=== PATIENT | male | born 1975 | race Caucasian/White ===

== ENCOUNTER 2019-09-27 23:02 | Inpatient (IN) | payer BC, SELFPAY ==
[2019-09-27] MEDS ORDERED: Lorazepam 2 MG/ML VIAL ONE (23:22)
[2019-09-27] MEDS ORDERED: Diazepam 5 MG TAB ONE (23:22)
[2019-09-27 23:23] LABS: #Eosinphils 0.1 thou/uL (0.0-0.7); #Lymphocytes 1.9 thou/uL (1.20-3.40); #Monocytes 0.6 thou/uL (0.11-0.59); #Neutrophils 3.5 thou/uL (1.40-6.50); %Basophils 0.6 % (0.0-1.0); %Lymphocytes 30.9 % (21.0-51.0); %Monocytes 9.6 % (0.0-10.0); %Neutrophils 57.9 % (42.0-75.0); Hemoglobin 14.8 g/dL (14.0-18.0); Mean Corpuscular HGB CONC 32.7 g/dL (32.0-36.0); Mean Corpuscular Hemoglobin 31.9 pg (27.0-31.0); Mean Corpuscular Volume 97.7 fL (78.0-98.0); Platelet Count 167 thou/uL (130-400); RBC Distribution Width 17.8 % (11.5-14.5); Red Blood Cell (RBC) Count 4.65 mill/uL (4.70-6.10); White Blood Cell (WBC) Count 6.1 thou/uL (4.8-10.8)
[2019-09-27 23:40] LABS: INR-International Normal Ratio 1.1; Prothrombin Time 14.4 SEC (12.0-14.7)
[2019-09-27 23:43] LABS: Acetaminophen Less than 6.0 mcg/mL (10.0-30.0); Alcohol Less than 10 mg/dL (Less than 10); Salicylate Less than 8.0 mg/dL (15.0-30.0)
[2019-09-27 23:44] LABS: ALT (SGPT) 160 U/L (8-55); AST (SGOT) 118 U/L (5-34); Albumin 3.8 g/dL (3.5-5.0); Alkaline Phosphatase 124 U/L (40-110); Anion Gap 23 mmol/L (10-20); BUN (Urea Nitrogen) 4 mg/dL (8.9-20.6); Bilirubin, Total 2.4 mg/dL (0.2-1.2); Calc. Creatinine Clearance 0 mL/min (70-130); Calcium 7.8 mg/dL (7.8-10.44); Carbon Dioxide 19 mmol/L (22-29); Chloride 100 mmol/L (98-107); Estimated GFR-MDRD 90; Globulin 2.7 g/dL (2.4-3.5); Glucose 111 mg/dL (70-105); Potassium 3.5 mmol/L (3.5-5.1); Protein, Total 6.5 g/dL (6.0-8.3); Sodium 138 mmol/L (136-145)
[2019-09-28] MEDS ORDERED: Ondansetron ODT 4 MG TAB SL PRN (02:00)
[2019-09-28] MEDS ORDERED: Ondansetron PF 4 MG/2 ML Vial IVP PRN ×3 (02:00→10:35)
[2019-09-28] MEDS ORDERED: Diazepam 5 MG TAB PO PRN (02:02)
[2019-09-28 02:33] VITALS: BMI 27.5
[2019-09-28] MEDS ORDERED: Multivitamins, Adult 10 ML, Thiamine HCl 100 MG, Folic Acid 1 MG in Dextrose 5 %-0.45 %... IV SCH (03:00)
[2019-09-28] MEDS: Lorazepam 2 MG/ML VIAL SLOW IVP PRN ×5 (04:24→21:06)
[2019-09-28 04:29] LABS: Lactic Acid 2.2 mmol/L (0.5-2.2)
--- NOTE | 2019-09-28 04:38 | PDOC.HHP ---
Hospitalist ROS - Medication Medications: Active Medications Generic Name Dose Route Start Last Admin Trade Name Freq PRN Reason Stop Dose Admin Diazepam 10 mg 09/28/19 02:02 09/28/19 03:05 Valium PO 09/28/19 13:05 10 mg Q4H PRN Administration FOR ASE 10 OR GREATER Multivitamins 10 ml/ Thiamine 1,011.2 mls @ 100 mls/hr 09/28/19 03:00 02:56 HCl 100 mg/ Folic Acid 1 mg/ IV 09/28/19 13:07 1,011.2 mls Dextrose/Sodium Chloride 0300 EMELI Administration Lorazepam 2 mg 09/28/19 02:39 09/28/19 04:24 Ativan SLOW IVP 2 mg Q2H PRN Administration Agitation/Withdrawal Hospitalist Results - Labs Result Diagrams: 09/27/19 23:10 09/27/19 23:10 Lab results: WBC 6.1 thou/uL (4.8-10.8) 09/27/19 23:10 Hgb 14.8 g/dL (14.0-18.0) 09/27/19 23:10 Hct 45.4 % (42.0-52.0) 09/27/19 23:10 MCV 97.7 fL (78.0-98.0) 09/27/19 23:10 Plt Count 167 thou/uL (130-400) 09/27/19 23:10 Neutrophils % 57.9 % (42.0-75.0) 09/27/19 23:10 Sodium 138 mmol/L (136-145) 09/27/19 23:10 Potassium 3.5 mmol/L (3.5-5.1) 09/27/19 23:10 Chloride 100 mmol/L (98-107) 09/27/19 23:10 Carbon Dioxide 19 mmol/L (22-29) L 09/27/19 23:10 BUN 4 mg/dL (8.9-20.6) L 09/27/19 23:10 Creatinine 0.92 mg/dL (0.7-1.3) 09/27/19 23:10 Glucose 111 mg/dL (70-105) H 09/27/19 23:10 Lactic Acid 2.2 mmol/L (0.5-2.2) 09/28/19 03:39 Calcium 7.8 mg/dL (7.8-10.44) 09/27/19 23:10 Total Bilirubin 2.4 mg/dL (0.2-1.2) H 09/27/19 23:10 AST 118 U/L (5-34) H 09/27/19 23:10 ALT 160 U/L (8-55) H 09/27/19 23:10 Alkaline Phosphatase 124 U/L (40-110) H 09/27/19 23:10 Creatine Kinase 79 U/L (30-200) 09/27/19 23:11 Serum Total Protein 6.5 g/dL (6.0-8.3) 09/27/19 23:10 Albumin 3.8 g/dL (3.5-5.0) 09/27/19 23:10
[2019-09-28] MEDS ORDERED: Magnesium Oxide 400 MG TAB PO SCH (09:00)
[2019-09-28] MEDS ORDERED: Ibuprofen 200 MG TAB PO PRN (10:35)
[2019-09-28] MEDS ORDERED: Acetaminophen 500 MG TAB PO PRN (10:35)
[2019-09-28] MEDS ORDERED: Labetalol HCl 100 MG/20 ML VIAL SLOW IVP PRN (10:35)
[2019-09-28] MEDS ORDERED: hydrALAZINE 20 MG/ML VIAL SLOW IVP PRN (10:35)
[2019-09-28] MEDS ORDERED: Ondansetron ODT 4 MG TAB PO PRN ×2 (10:35)
[2019-09-28] MEDS: Sodium Chloride 0.9% 1,000 ML IV SCH ×2 (12:06→21:12)
[2019-09-28] MEDS: Multivitamins, Adult 10 ML, Folic Acid 1 MG, Thiamine HCl 100 MG in Dextrose 5 %-0.45 %... IV SCH (12:33)
--- NOTE | 2019-09-28 13:09 | HP ---
PRIMARY CARE PROVIDER: Dr. Armaan Bourne at [facility]. CHIEF COMPLAINT: Alcohol withdrawal. HISTORY OF PRESENT ILLNESS: This is a 44-year-old male, who presented to [facility] Emergency Department complaining of alcohol withdrawal symptoms including tremors, sweating, appetite changes, and lower extremity weakness. The patient admits to longstanding alcohol abuse with inpatient treatment on 2 occasions, most notably 3 years ago and 1 year prior to this evaluation at [facility]. The patient states he was successful initially after leaving the program, then went back to heavy alcohol use. The patient states he last drank a half a bottle of bourbon on 09/24/2019 and was attempting to wean himself off the alcohol. The patient noted increased lower extremity weakness and difficulty ambulating in his house from his bed to the restroom in the cardiac cath lab manager hours prior to admission. The patient states his legs gave out and he had to crawl back to his bed. The patient denied any seizure activity, head injury, or loss of consciousness. The patient denied any fever, chills, nausea, vomiting, diarrhea, or blood in the stool. The patient denies taking any benzodiazepines at home, but did take antidepressant for depression. In the emergency room, the patient underwent evaluation with evidence of alcohol withdrawal with hypertension, tachycardia, and tachypnea. The patient received intravenous fluids in addition to lorazepam 2 mg IV push in addition to diazepam 10 mg orally. The patient was referred to the Hospitalist Service for further evaluation. PAST MEDICAL HISTORY: 1. Alcohol abuse. 2. Alcohol withdrawal. 3. Depression. 4. Gastric ulcer, status post cauterization. 5. Anxiety. PAST SURGICAL HISTORY: 1. Status post gastric bypass. 2. Status post cauterization of gastric ulcer. CURRENT MEDICATIONS: Duloxetine 60 mg p.o. b.i.d. ALLERGIES: NO KNOWN DRUG ALLERGIES. FAMILY HISTORY: No inheritable diseases per the patient report. SOCIAL HISTORY: The patient resides in [place], [place] over the last 25 years. Daily alcohol use up to 10 drinks per day. Last intake in the last 48 hours. Remote tobacco use, none currently. No illicit drug use. Currently unemployed after recently losing his job. REVIEW OF SYSTEMS: CONSTITUTIONAL: Negative for weight loss or gain, ability to conduct usual activities. SKIN: Negative for rash, itching. EYES: Negative for double vision, pain. ENT/MOUTH: Negative for nose bleeding, neck stiffness, pain, tenderness. CARDIOVASCULAR: Negative for palpitations, dyspnea on exertion, orthopnea. RESPIRATORY: Negative for shortness of breath, wheezing, cough, hemoptysis, fever or night sweats. GASTROINTESTINAL: Negative for poor appetite, abdominal pain, heartburn, nausea, vomiting, constipation, or diarrhea. GENITOURINARY: Negative for urgency, frequency, dysuria, nocturia. MUSCULOSKELETAL: Negative for pain, swelling. NEUROLOGIC/PSYCHIATRIC: Negative for anxiety, depression. ALLERGY/IMMUNOLOGIC: Negative for skin rash, bleeding tendency. Otherwise, negative except as stated per HPI. PHYSICAL EXAMINATION: VITAL SIGNS: On admission, blood pressure 147/101, pulse 118, respiratory rate 24, temperature 99.1 degrees Fahrenheit, and O2 saturation 99% on room air. GENERAL APPEARANCE: This is a 44-year-old male, alert and oriented x1, pleasant, responsive, in moderate distress. HEENT: Pupils are equal, round, and reactive to light and accommodation. Extraocular muscles are intact. No scleral icterus. No conjunctival injection. Nares patent. OP is clear. Oral mucosa dry. NECK: Supple. No cervical adenopathy. No thyromegaly. No carotid bruits. No JVD appreciated. Cervical spine with full active and passive range of motion. No meningeal signs noted. CHEST: Lungs are clear to auscultation bilaterally. CARDIOVASCULAR: S1 and S2 without noted murmur, rub, or gallop. Tachycardia noted. ABDOMEN: Rounded, soft, nontender, and nondistended. Bowel sounds are positive in all 4 quadrants. There is no palpable mass. No rebound or guarding appreciated. EXTREMITIES: Warm and dry with fair turgor. Diaphoretic. Pulses palpable distally at the dorsalis pedis, posterior tibial, and popliteal arteries bilaterally. Capillary refill less than 2 seconds. NEUROLOGIC: Cranial nerves II through XII are grossly intact. Positive tremors noted at rest. PERTINENT LABORATORY AND X-RAY FINDINGS: Sodium 138, potassium 3.5, chloride 100, CO2 of 19, BUN 4, creatinine 0.92, glucose 111. Lactic acid level ranged between 2.2 to 6.8. Calcium 7.8, total bilirubin 2.4, AST 118, ALT 160, alkaline phosphatase 124, total CK of 79, and albumin 3.8. TSH 3.81. CBC showed a white blood cell count of 6.1, hemoglobin 15, hematocrit 45, platelet count 167 with normal differential. PT 14.4, INR 1.1, and PTT 32. Salicylate, acetaminophen, and plasma alcohol level negative. EKG dated 09/27/2019 by my interpretation shows sinus tachycardia with heart rates in the 120s. Poor tracing with extensive baseline artifact and respiratory variation. ASSESSMENT AND PLAN: 1. Alcohol withdrawal. The patient will be admitted to the intermediate care unit. We will continue supportive and symptomatic management with Ativan 2 mg IV every hour for withdrawal symptoms. Banana bag at 125 mL/h daily. Consult Case Management for evaluation and identification of alcohol rehabilitation facilities. 2. Alcohol abuse. See #1 above. 3. Transaminitis. Secondary to alcohol-induced hepatitis. Serial LFT monitoring. 4. Lactic acidosis. Secondarily to #1. We will continue IV fluid hydration and monitor clinical response. 5. Prophylaxis. SCDs while in bed. Pepcid 20 mg p.o. b.i.d. 6. Code status is full. Surrogate medical decision maker is the patient's spouse. Job ID: [id number]
[2019-09-28] MEDS: Famotidine 20 MG TAB PO SCH (21:07)
[2019-09-29 04:36] LABS: ALT (SGPT) 107 U/L (8-55); AST (SGOT) 114 U/L (5-34); Alkaline Phosphatase 94 U/L (40-110); Anion Gap 11 mmol/L (10-20); BUN (Urea Nitrogen) Less than 4 mg/dL (8.9-20.6); Bilirubin, Total 1.3 mg/dL (0.2-1.2); Calc. Creatinine Clearance 191 mL/min (70-130); Calcium 7.4 mg/dL (7.8-10.44); Carbon Dioxide 23 mmol/L (22-29); Chloride 108 mmol/L (98-107); Estimated GFR-MDRD Greater than 90; Globulin 2.2 g/dL (2.4-3.5); Glucose 106 mg/dL (70-105); Potassium 3.2 mmol/L (3.5-5.1); Protein, Total 5.2 g/dL (6.0-8.3); Sodium 139 mmol/L (136-145)
[2019-09-29 04:41] LABS: Eosinophils 1 % (0-10); Hemoglobin 13.2 g/dL (14.0-18.0); Lymphocytes 25 % (21-51); MDiff Complete? YES; Mean Corpuscular Hemoglobin 31.7 pg (27.0-31.0); Mean Corpuscular Volume 99.1 fL (78.0-98.0); Mean Platelet Volume 9.1 fL (7.4-10.4); Monocytes 5 % (0-10); Neutrophil 65 % (42-75); Platelet Count 120 thou/uL (130-400); RBC Distribution Width 17.6 % (11.5-14.5); Reactive Lymphocytes 4 % (0-10); Red Blood Cell (RBC) Count 4.15 mill/uL (4.70-6.10); White Blood Cell (WBC) Count 3.2 thou/uL (4.8-10.8)
--- NOTE | 2019-09-29 08:51 | PDOC.HOSPP ---
- Subjective Encounter Date: 09/29/19 Encounter Time: 08:40 Subjective: f/u for ETOH withdrawal/abuse on Ativan, IVF Banana bag. Did well overnight but has some tremors this am. - Objective Vital Signs & Weight: Vital Signs (12 hours) Temp Pulse Ox 09/29/19 07:57 99 09/29/19 07:33 97.8 F 09/29/19 03:51 97.6 F 09/28/19 23:39 97.6 F Weight Weight 202 lb 12.8 oz Most Recent Monitor Data Heart Rate from ECG 94 NIBP 130/90 NIBP BP-Mean 103 Respiration from ECG 16 SpO2 100 I&O: 09/28/19 09/29/19 09/30/19 06:59 06:59 06:59 Intake Total 710 4665 Output Total 450 3550 800 Balance 260 1115 -800 Result Diagrams: 09/29/19 03:39 09/29/19 03:39 Additional Labs: Laboratory Tests 09/27/19 09/27/19 09/27/19 23:10 23:10 23:11 WBC 6.1 Hgb 14.8 Potassium 3.5 Total Bilirubin 2.4 H AST 118 H ALT 160 H TSH 3rd Generation 3.8138 09/29/19 03:39 WBC Hgb Potassium Total Bilirubin 1.3 H AST 114 H ALT 107 H TSH 3rd Generation EKG Reviewed by me: Yes (Tele - sinus tachycardia in low 100's) Hospitalist ROS - Medication Medications: Active Medications Generic Name Dose Route Start Last Admin Trade Name Freq PRN Reason Stop Dose Admin Famotidine 20 mg 09/28/19 21:00 09/28/19 21:07 Pepcid PO 20 mg BID EMELI Administration Multivitamins 10 ml/ Folic 1,011.2 mls @ 125 mls/hr 09/28/19 10:35 09/28/19 12:33 Acid 1 mg/ Thiamine HCl 100 mg IV 1,011.2 mls / Dextrose/Sodium Chloride Q24HR EMELI Administration Sodium Chloride 1,000 mls @ 100 mls/hr 09/28/19 10:35 09/28/19 21:12 Normal Saline 0.9% IV 1,000 mls .Q10H EMELI Administration Lorazepam 2 mg 09/28/19 10:35 09/28/19 21:06 Ativan SLOW IVP 2 mg Q1H PRN Administration Alcohol Withdrawal - Exam General Appearance: NAD, awake alert Eye: PERRL, anicteric sclera ENT: normocephalic atraumatic, no oropharyngeal lesions Neck: supple, symmetric, no JVD, no thyromegaly Heart: no murmur, no gallops, no rubs Heart - other findings: tachycardic Respiratory: CTAB, no wheezes, no rales, no ronchi, normal chest expansion Gastrointestinal: soft, non-tender, non-distended, normal bowel sounds, no palpable masses Extremities: no cyanosis, no clubbing, no edema Skin: normal turgor, no lesions Neurological: cranial nerve grossly intact, no new deficit Neurological - other findings: + tremors Musculoskeletal: generalized weakness Psychiatric: normal affect, A&O x 3 Hosp A/P (1) Alcohol withdrawal Code(s): F10.239 - ALCOHOL DEPENDENCE WITH WITHDRAWAL, UNSPECIFIED Status: Acute Plan: Continue Ativan 2mg IV q2h prn, supportive mgmt, ETOH rehab options (2) Alcohol abuse Code(s): F10.10 - ALCOHOL ABUSE, UNCOMPLICATED Status: Acute Plan: See above, continue IVF Banana bag (3) Lactic acidosis Code(s): E87.2 - ACIDOSIS Status: Acute Plan: Resolved (4) Hypokalemia Code(s): E87.6 - HYPOKALEMIA Status: Acute Plan: KCL supplementation, serial K+ monitoring (5) Alcoholic hepatitis Code(s): K70.10 - ALCOHOLIC HEPATITIS WITHOUT ASCITES Status: Chronic Plan: Continue serial monitoring - Plan plan discussed w/ family, social media content specialist, DVT proph w/SCDs Continue Ativan 2mg IV q2h prn withdrawal sx Continue Banana bag daily Restart home Cymbalta CM for ETOH rehab program options Continue Tele monitoring AM lab: CMP
[2019-09-29] MEDS: Lorazepam 2 MG/ML VIAL SLOW IVP PRN ×6 (09:04→22:45)
[2019-09-29] MEDS: Sodium Chloride 0.9% 1,000 ML IV SCH ×2 (09:04→18:11)
[2019-09-29] MEDS: Famotidine 20 MG TAB PO SCH ×2 (09:04→20:17)
[2019-09-29] MEDS ORDERED: Potassium Chloride 20 MEQ TAB PO SCH (09:15)
[2019-09-29] MEDS ORDERED: DULoxetine 60 MG CAP PO SCH ×2 (09:15→09:30)
[2019-09-29] MEDS: Multivitamins, Adult 10 ML, Folic Acid 1 MG, Thiamine HCl 100 MG in Dextrose 5 %-0.45 %... IV SCH (12:03)
[2019-09-29] MEDS: Potassium Chloride 20 MEQ TAB PO SCH (18:05)
[2019-09-29] MEDS: DULoxetine 60 MG CAP PO SCH (20:17)
[2019-09-30] MEDS: Lorazepam 2 MG/ML VIAL SLOW IVP PRN ×5 (01:04→22:08)
[2019-09-30] MEDS: Sodium Chloride 0.9% 1,000 ML IV SCH ×3 (03:35→22:11)
[2019-09-30 04:36] LABS: ALT (SGPT) 137 U/L (8-55); AST (SGOT) 197 U/L (5-34); Alkaline Phosphatase 86 U/L (40-110); Anion Gap 9 mmol/L (10-20); BUN (Urea Nitrogen) 5 mg/dL (8.9-20.6); Calc. Creatinine Clearance 194 mL/min (70-130); Calcium 7.9 mg/dL (7.8-10.44); Carbon Dioxide 25 mmol/L (22-29); Chloride 108 mmol/L (98-107); Estimated GFR-MDRD Greater than 90; Globulin 2.3 g/dL (2.4-3.5); Glucose 99 mg/dL (70-105); Potassium 4.1 mmol/L (3.5-5.1); Protein, Total 5.3 g/dL (6.0-8.3); Sodium 138 mmol/L (136-145)
[2019-09-30] MEDS: Potassium Chloride 20 MEQ TAB PO SCH (09:41)
[2019-09-30] MEDS: Famotidine 20 MG TAB PO SCH ×2 (09:42→19:49)
[2019-09-30] MEDS: DULoxetine 60 MG CAP PO SCH ×2 (09:42→19:48)
[2019-09-30] MEDS: Multivitamins, Adult 10 ML, Folic Acid 1 MG, Thiamine HCl 100 MG in Dextrose 5 %-0.45 %... IV SCH (10:48)
--- NOTE | 2019-09-30 15:00 | CON ---
DATE OF CONSULTATION: 09/30/2019 SERVICE: Pulmonary Medicine. INTERVAL HISTORY: The patient is doing really well from respiratory standpoint. He was in the IMCU because of severe withdrawal features. He did get a little confused, but at no point, did he become severely agitated or combative. He cannot provide any additional elements of the history at this point. All he knows is that he would like to be done with drinking any alcohol. He has never had withdrawal features this severe. He typically drinks a half of fifth every couple of days. That being said, he is a heavy daily drinker. PAST MEDICAL HISTORY: 1. Alcohol abuse. 2. Major depressive disorder. 3. Peptic ulcer disease. 4. Anxiety disorder. PAST SURGICAL HISTORY: 1. Gastric bypass surgery. 2. EGD for peptic ulcer disease. ALLERGIES: NO KNOWN DRUG ALLERGIES. MEDICATIONS: List of his inpatient medications was reviewed. No specific updates were made at this time. SOCIAL HISTORY: The patient has a positive alcohol abuse history. Otherwise, noncontributory. He uses up to a half of fifth of liquor on a daily basis. He has been without alcohol for 3 days now. He does not use any current tobacco or illicit drugs. REVIEW OF SYSTEMS: General; head, ears, eyes, nose, and throat; cardiovascular; respiratory; GI; ; musculoskeletal; neurologic; and skin are negative except as mentioned in the HPI. PHYSICAL EXAMINATION: VITAL SIGNS: Afebrile, pulse 67, respirations 15, saturations 99%, currently on room air. GENERAL: The patient is awake and alert, in no apparent distress. LUNGS: One full air entry with no prolonged expiratory phase or wheezing. HEART: Normal rate, regular. ABDOMEN: Soft, nontender, and nondistended. Bowel sounds are positive. MUSCULOSKELETAL: No cyanosis or clubbing. There is no pitting in the bilateral lower extremities. NEUROLOGIC: Grossly nonfocal. He does demonstrate a very fine tremor with much of his activity. LABORATORY DATA: WBC 3.2, hemoglobin 13.2, platelets 120,000. INR 1.1. Basic metabolic profile is unremarkable. AST and ALT are gently up-trending, alkaline phosphatase 83. Lactate was originally 6.8, but is downtrending at 2.2. CK 79, TSH falls within normal limits. Alcohol serum and salicylates are all unremarkable. ASSESSMENT: 1. Delirium tremens, resolved. 2. Alcohol withdrawal syndrome, mild. 3. Alcoholic hepatitis, mild. DISCUSSION AND PLAN: At this point, the patient is stable for transition out of the ICU to the medical unit. He will continue his Ativan taper through time. He is no longer confused or disoriented. He is awake and alert, and cooperative. As such, I am hopeful that were through the worst of it. Once he is done with his Ativan taper, gabapentin may help to blunt the withdrawal features over the next couple of months. I will see whether or not this is effective for him. He will be transitioned to the floor, and when he arrives there, he will have no further requirements for Pulmonary Critical Care opinion, and I will sign off. Please call with additional questions or concerns through time. Job ID: [id number]
[2019-09-30] MEDS: Gabapentin 100 MG CAP PO SCH ×2 (15:11→19:49)
--- NOTE | 2019-09-30 16:06 | PDOC.HOSPP ---
- Subjective Encounter Date: 09/30/19 Encounter Time: 16:00 Subjective: f/u for ETOH withdrawal on Ativan, IVF's and Banana bags. Still with some tremors, not ambulating much due to cardiac monitoring. - Objective Vital Signs & Weight: Vital Signs (12 hours) Temp Pulse Ox 09/30/19 15:23 96.5 F L 09/30/19 11:36 97.0 F L 09/30/19 08:15 97.0 F L 09/30/19 08:00 99 Weight Weight 202 lb 12.8 oz Most Recent Monitor Data Heart Rate from ECG 78 NIBP 119/96 NIBP BP-Mean 103 Respiration from ECG 16 SpO2 100 I&O: 09/29/19 09/30/19 10/01/19 06:59 06:59 06:59 Intake Total 4665 6500 Output Total 3550 4250 Balance 1115 2250 Result Diagrams: 09/29/19 03:39 09/30/19 03:24 Additional Labs: Laboratory Tests 09/27/19 09/27/19 09/27/19 23:10 23:10 23:11 WBC 6.1 Hgb 14.8 Potassium 3.5 Total Bilirubin 2.4 H AST 118 H ALT 160 H TSH 3rd Generation 3.8138 09/29/19 03:39 WBC Hgb Potassium Total Bilirubin 1.3 H AST 114 H ALT 107 H TSH 3rd Generation EKG Reviewed by me: Yes (Tele - Sinus tachycardia in low-100's) Hospitalist ROS - Medication Medications: Active Medications Generic Name Dose Route Start Last Admin Trade Name Freq PRN Reason Stop Dose Admin Duloxetine HCl 60 mg 09/29/19 21:00 09/30/19 09:42 Cymbalta PO 60 mg BID EMELI Administration Famotidine 20 mg 09/28/19 21:00 09/30/19 09:42 Pepcid PO 20 mg BID EMELI Administration Gabapentin 100 mg 09/30/19 15:00 09/30/19 15:11 Neurontin PO 100 mg TID EMELI Administration Sodium Chloride 1,000 mls @ 100 mls/hr 09/28/19 10:35 09/30/19 13:51 Normal Saline 0.9% IV 1,000 mls .Q10H EMELI Administration Lorazepam 2 mg 09/28/19 10:35 09/30/19 15:12 Ativan SLOW IVP 2 mg Q1H PRN Administration Alcohol Withdrawal Sodium Chloride 10 ml 09/29/19 21:00 09/30/19 09:43 Flush - Normal Saline IVF 10 ml Q12HR EMELI Administration - Exam General Appearance: NAD, awake alert Eye: PERRL, anicteric sclera ENT: normocephalic atraumatic, no oropharyngeal lesions Neck: supple, symmetric, no JVD, no thyromegaly Heart: RRR, no murmur, no gallops, no rubs, normal peripheral pulses Respiratory: CTAB, no wheezes, no rales, no ronchi Gastrointestinal: soft, non-tender, non-distended, normal bowel sounds Extremities: no cyanosis, no clubbing, no edema Skin: normal turgor, no lesions Neurological: cranial nerve grossly intact, no new deficit Neurological - other findings: + tremors Musculoskeletal: normal tone, normal strength, no muscle wasting Psychiatric: normal affect, A&O x 3 Hosp A/P (1) Alcohol withdrawal Code(s): F10.239 - ALCOHOL DEPENDENCE WITH WITHDRAWAL, UNSPECIFIED Status: Acute Plan: Continue Ativan IV, MVI, Thiamine and Folate, Rehab options pending (2) Alcohol abuse Code(s): F10.10 - ALCOHOL ABUSE, UNCOMPLICATED Status: Acute Plan: See above #1 (3) Lactic acidosis Code(s): E87.2 - ACIDOSIS Status: Acute Plan: Resolved (4) Hypokalemia Code(s): E87.6 - HYPOKALEMIA Status: Acute Plan: Resolved (5) Alcoholic hepatitis Code(s): K70.10 - ALCOHOLIC HEPATITIS WITHOUT ASCITES Status: Chronic - Plan social media community manager, out of bed/ambulate, DVT proph w/SCDs Continue Ativan 2mg IV q2h prn withdrawal sx MVI, Thiamine and Folate Restart home Cymbalta CM for ETOH rehab program options AM lab: CMP Transfer to medical floor
[2019-10-01] MEDS: Sodium Chloride 0.9% 1,000 ML IV SCH (08:35)
[2019-10-01] MEDS: Gabapentin 100 MG CAP PO SCH ×3 (08:36→20:11)
[2019-10-01] MEDS: Multivitamin W/ Minerals 1 TAB PO SCH (08:36)
[2019-10-01] MEDS: Famotidine 20 MG TAB PO SCH ×2 (08:37→20:11)
[2019-10-01] MEDS: Folic Acid 1 MG TAB PO SCH (08:37)
[2019-10-01] MEDS: DULoxetine 60 MG CAP PO SCH ×2 (08:37→20:11)
[2019-10-01] MEDS: Thiamine 100 MG TAB PO SCH (08:37)
[2019-10-01] MEDS: Lorazepam 2 MG/ML VIAL SLOW IVP PRN ×2 (08:40→20:12)
--- NOTE | 2019-10-01 10:01 | PDOC.HOSPP ---
- Subjective Encounter Date: 10/01/19 Encounter Time: 09:45 Subjective: f/u ETOH withdrawal on Ativan and IVF's. Feels better overall but still with some tremors. Appetite good and voiding ok. - Objective Vital Signs & Weight: Vital Signs (12 hours) Temp Pulse Resp BP BP Pulse Ox 10/01/19 08:00 98.9 F 111 H 20 120/84 98 10/01/19 04:00 98.3 F 98 16 120/79 120/79 96 10/01/19 00:32 98.1 F 86 16 131/89 98 09/30/19 23:42 131/89 Weight Weight 202 lb 12.8 oz Most Recent Monitor Data Heart Rate from ECG 75 NIBP 119/96 NIBP BP-Mean 103 Respiration from ECG 15 SpO2 100 I&O: 09/30/19 10/01/19 10/02/19 06:59 06:59 06:59 Intake Total 6500 1200 Output Total 4250 400 Balance 2250 800 Result Diagrams: 09/29/19 03:39 09/30/19 03:24 Additional Labs: Laboratory Tests 09/27/19 09/27/19 09/27/19 23:10 23:10 23:11 WBC 6.1 Hgb 14.8 Potassium 3.5 Total Bilirubin 2.4 H AST 118 H ALT 160 H TSH 3rd Generation 3.8138 09/29/19 03:39 WBC Hgb Potassium Total Bilirubin 1.3 H AST 114 H ALT 107 H TSH 3rd Generation Hospitalist ROS - Medication Medications: Active Medications Generic Name Dose Route Start Last Admin Trade Name Freq PRN Reason Stop Dose Admin Duloxetine HCl 60 mg 09/29/19 21:00 10/01/19 08:37 Cymbalta PO 60 mg BID EMELI Administration Famotidine 20 mg 09/28/19 21:00 10/01/19 08:37 Pepcid PO 20 mg BID EMELI Administration Folic Acid 1 mg 10/01/19 09:00 10/01/19 08:37 Folvite PO 1 mg DAILY EMELI Administration Gabapentin 100 mg 09/30/19 15:00 10/01/19 08:36 Neurontin PO 100 mg TID EMELI Administration Sodium Chloride 1,000 mls @ 100 mls/hr 09/28/19 10:35 10/01/19 08:35 Normal Saline 0.9% IV 1,000 mls .Q10H EMELI Administration Iron/Minerals/Multivitamins 1 tab 10/01/19 09:00 10/01/19 08:36 Theragran M PO 1 tab DAILY EMELI Administration Lorazepam 2 mg 09/30/19 23:21 10/01/19 08:40 Ativan SLOW IVP 2 mg Q2H PRN Administration Alcohol Withdrawal Sodium Chloride 10 ml 09/29/19 21:00 10/01/19 08:37 Flush - Normal Saline IVF 10 ml Q12HR EMELI Administration Thiamine HCl 100 mg 10/01/19 09:00 10/01/19 08:37 Thiamine PO 100 mg DAILY EMELI Administration - Exam General Appearance: NAD, awake alert Eye: PERRL, anicteric sclera ENT: normocephalic atraumatic, no oropharyngeal lesions Neck: supple, symmetric, no JVD Heart: RRR, no murmur, no gallops, no rubs, normal peripheral pulses Respiratory: CTAB, no wheezes, no rales, no ronchi Gastrointestinal: soft, non-tender, non-distended, normal bowel sounds Extremities: no cyanosis, no clubbing, no edema Skin: normal turgor, no lesions Neurological: cranial nerve grossly intact, no new deficit Neurological - other findings: + tremors Musculoskeletal: normal strength, generalized weakness Psychiatric: normal affect, A&O x 3 Hosp A/P (1) Alcohol withdrawal Code(s): F10.239 - ALCOHOL DEPENDENCE WITH WITHDRAWAL, UNSPECIFIED Status: Acute Plan: Continue Ativan currently, transition to po options, saline lock IVF's, OOB and ambulate (2) Alcohol abuse Code(s): F10.10 - ALCOHOL ABUSE, UNCOMPLICATED Status: Acute Plan: Plan for attending AA after discharge (3) Lactic acidosis Code(s): E87.2 - ACIDOSIS Status: Acute (4) Hypokalemia Code(s): E87.6 - HYPOKALEMIA Status: Acute Plan: Resolved (5) Alcoholic hepatitis Code(s): K70.10 - ALCOHOLIC HEPATITIS WITHOUT ASCITES Status: Chronic - Plan social media job titles, out of bed/ambulate Continue Ativan 2mg IV q2h prn withdrawal sx MVI, Thiamine and Folate Restart home Cymbalta CM for ETOH rehab program options Saline lock IVF Likely home in am
[2019-10-02] MEDS: DULoxetine 60 MG CAP PO SCH (09:14)
[2019-10-02] MEDS: Folic Acid 1 MG TAB PO SCH (09:15)
[2019-10-02] MEDS: Multivitamin W/ Minerals 1 TAB PO SCH (09:15)
[2019-10-02] MEDS: Famotidine 20 MG TAB PO SCH (09:15)
[2019-10-02] MEDS: Thiamine 100 MG TAB PO SCH (09:15)
[2019-10-02] MEDS: Gabapentin 100 MG CAP PO SCH (09:18)
[2019-10-02 13:48] VITALS: BP 132/92; TEMP 98.6
--- NOTE | 2019-10-02 16:55 | DIS ---
DATE OF ADMISSION: 09/28/2019 DATE OF DISCHARGE: 10/02/2019 DISCHARGE DIAGNOSES: 1. Acute alcohol withdrawal, improved. 2. Chronic alcohol abuse. 3. Lactic acidosis, resolved. 4. Hypokalemia, resolved. 5. Alcohol-induced hepatitis. CONSULTATIONS: Dr. Valencia with Pulmonology/Critical Care Service. PERTINENT LABORATORY AND X-RAY FINDINGS: Potassium ranged between 3.2 to 4.1. Lactic acid level ranged between 2.2 to 6.8, magnesium level 1.9, AST ranged between 114 to 197, ALT ranged between 107 to 160. Total bilirubin ranged between 1.0 to 1.3. TSH 3.81. CBC within normal limits. Plasma alcohol level less than 10 on 09/27/2019. HOSPITAL COURSE: The patient was initially admitted to the intermediate care unit after presenting with acute alcohol withdrawal syndrome. The patient with longstanding chronic alcohol abuse, was initially managed with IV fluids in addition to Ativan intravenously. The patient received banana bag daily in addition to ASE protocol. The patient did not exhibit evidence of withdrawal seizures, however, did exhibit tremors throughout the hospital course. The patient clinically stabilized in approximately 72 hours, tolerating regular oral intake and voiding appropriately. The patient was given information regarding inpatient alcohol rehabilitation, however, the patient decided to pursue outpatient management including attending AA meetings. Overall, the patient did remain clinically stable. I have examined the patient at the time of discharge and discussed followup instructions. The patient verbalized understanding and in agreement and ready for discharge on 10/02/2019. DISCHARGE MEDICATIONS: 1. Cymbalta 60 mg p.o. b.i.d. 2. Omeprazole 20 mg p.o. daily. 3. Ativan 2 mg p.o. q.i.d. p.r.n. withdrawal symptoms. 4. Multivitamin 1 tablet p.o. daily. 5. Thiamine 100 mg p.o. daily. FOLLOWUP: The patient may follow up with his primary care provider, Dr. Armaan Bourne and to call his office for appointment, time, and date. CONDITION ON DISCHARGE: Stable. ACTIVITY: Ad-fazal. DIET: Regular. CODE STATUS: Full. DISPOSITION: Home on 10/02/2019. TIME SPENT: Total time preparing and coordinating discharge, 32 minutes. Job ID: [id number]
== END 2019-10-02 14:30 | disposition home or self-care (01) | DRG 897 ==
LOC: ERS 23:02 → IMCU/EMU 09-28 01:21 → T4-B 09-30 17:05
PROVIDERS: ADMIT Internal Medicine; ATTEND Internal Medicine
PROC: HZ2ZZZZ Detoxification Services for Substance Abuse Treatment (ICD-10-PCS; principal; 2019-09-28)
DX: F10.231 Alcohol dependence with withdrawal delirium (principal); E87.2 Acidosis; Y90.0 Blood alcohol level of less than 20 mg/100 ml; E87.6 Hypokalemia; K70.10 Alcoholic hepatitis without ascites; F41.9 Anxiety disorder, unspecified; F32.9 Major depressive disorder, single episode, unspecified; R40.2362 Coma scale, best motor response, obeys commands, at arrival to emergency department; R40.2142 Coma scale, eyes open, spontaneous, at arrival to emergency department; R40.2252 Coma scale, best verbal response, oriented, at arrival to emergency department; Z98.84 Bariatric surgery status
CPT/HCPCS: 36415; 80053; 80307; 82550; 83605; 83735; 84443; 85007; 85025; 85027; 85610; 85730; 93005; J2060; J3411; J3475; J3490; J7042

== ENCOUNTER 2020-02-01 17:58 | Inpatient (IN) | payer BC, OTHER ==
[2020-02-01 18:30] LABS: #Basophils 0.1 thou/uL (0.0-0.2); #Eosinphils 0.1 thou/uL (0.0-0.7); #Lymphocytes 1.9 thou/uL (1.20-3.40); #Monocytes 1.4 thou/uL (0.11-0.59); #Neutrophils 8.7 thou/uL (1.40-6.50); %Basophils 0.4 % (0.0-1.0); %Eosinophils 0.6 % (0.0-10.0); %Lymphocytes 15.6 % (21.0-51.0); %Monocytes 11.4 % (0.0-10.0); %Neutrophils 72.1 % (42.0-75.0); Hemoglobin 13.6 g/dL (14.0-18.0); Mean Corpuscular HGB CONC 33.5 g/dL (32.0-36.0); Mean Corpuscular Hemoglobin 34.3 pg (27.0-31.0); Mean Platelet Volume 8.8 fL (7.4-10.4); Platelet Count 227 thou/uL (130-400); RBC Distribution Width 13.5 % (11.5-14.5); Red Blood Cell (RBC) Count 3.96 mill/uL (4.70-6.10); White Blood Cell (WBC) Count 12.1 thou/uL (4.8-10.8)
[2020-02-01] MEDS ORDERED: Lorazepam 2 MG/ML VIAL ONE (18:45)
[2020-02-01 18:47] LABS: ALT (SGPT) 79 U/L (8-55); AST (SGOT) 55 U/L (5-34); Albumin 4.1 g/dL (3.5-5.0); Alcohol Less than 10 mg/dL (Less than 10); Alkaline Phosphatase 97 U/L (40-110); Anion Gap 24 mmol/L (10-20); BUN (Urea Nitrogen) 23 mg/dL (8.9-20.6); Bilirubin, Total 2.7 mg/dL (0.2-1.2); CK (CPK) 17 U/L (30-200); Calc. Creatinine Clearance 0 mL/min (70-130); Calcium 8.8 mg/dL (7.8-10.44); Carbon Dioxide 12 mmol/L (22-29); Chloride 107 mmol/L (98-107); Estimated GFR-MDRD 67; Glucose 174 mg/dL (70-105); Lipase 163 U/L (8-78); Potassium 3.3 mmol/L (3.5-5.1); Protein, Total 7.1 g/dL (6.0-8.3); Sodium 140 mmol/L (136-145)
[2020-02-01 18:55] LABS: Acetaminophen Less than 6.0 mcg/mL (10.0-30.0); Alcohol Less than 10 mg/dL (Less than 10); Salicylate Less than 8.0 mg/dL (15.0-30.0)
--- NOTE | 2020-02-01 19:02 | RAD ---
PORTABLE CHEST: 02/01/20 HISTORY: Dyspnea. COVID positive. Heart size and mediastinum are within normal limits. The lungs are clear of infiltrates. Old right ri b fractures are seen. IMPRESSION: No active intrathoracic disease. POS: [facility]
--- NOTE | 2020-02-01 19:25 | CT ---
CT OF BRAIN PERFORMED WITHOUT CONTRAST ENHANCEMENT: 02/01/20 HISTORY: Altered mental status. Nausea and vomiting. The ventricular and cisternal system is mildly prominent for age. There is no signs of intracerebral hemorrhage or extra-axial fluid collections. The mastoid air cells and visualized sinuses are clear. IMPRESSION: No acute intracranial abnormalities. POS: [facility] [place]
[2020-02-01] MEDS ORDERED: Multivitamins, Adult 10 ML, Thiamine HCl 100 MG, Folic Acid 1 MG in Dextrose 5 %-0.45 %... IV SCH (19:30)
[2020-02-01] MEDS ORDERED: Diazepam 5 MG TAB ONE (19:44)
[2020-02-01 20:26] LABS: Bacteria/HPF None Seen HPF (None Seen); Bilirubin 1+ (Negative); Blood, Urine Negative (Negative); Clarity Clear (Clear); Glucose, Urine (Dipstick) Normal (Negative); Leukocyte Negative Leu/uL (Negative); Nitrite Negative (Negative); Protein, Urine (Dipstick) 30 mg/dL (Neg-Trace); RBC/HPF 0-3 HPF (0-3); Squamous Epithelial None Seen HPF (0-3); Urobilinogen 12 mg/dL (Less than 2); WBC/HPF 0-3 HPF (0-3)
[2020-02-01 20:38] LABS: Amphetamine Not Detected (NotDetected); Barbiturates Screen Not Detected (NotDetected); Benzodiazepine Screen Not Detected (NotDetected); Cocaine Metabolite Screen Not Detected (NotDetected); Medtox Control Line Valid? VALID (VALID); Medtox Reader # READER 4; Methadone Not Detected (NotDetected); Methamphetamine Not Detected (NotDetected); Opiate Screen Not Detected (NotDetected); Oxycodone Screen Not Detected (NotDetected); Phencyclidine (PCP) Not Detected (NotDetected); THC/Cannabinoid Screen Not Detected (NotDetected); Tricyclic Screen Not Detected (NotDetected)
[2020-02-01] MEDS ORDERED: hydrALAZINE 20 MG/ML VIAL SLOW IVP PRN (22:04)
[2020-02-01] MEDS ORDERED: Promethazine HCl 12.5 MG in Sodium Chloride 0.9% 50 ML IVPB PRN (22:04)
[2020-02-01] MEDS ORDERED: Morphine 2 MG/ML SYRINGE SLOW IVP PRN (22:04)
[2020-02-01] MEDS ORDERED: Acetaminophen 325 MG TAB PO PRN (22:04)
[2020-02-01] MEDS ORDERED: Labetalol HCl 100 MG/20 ML VIAL SLOW IVP PRN (22:04)
[2020-02-01] MEDS ORDERED: cloNIDine 0.1 MG TAB PO PRN (22:04)
[2020-02-01] MEDS ORDERED: Guaifenesin DM 100-10/5 ML UDCUP PO PRN (22:04)
[2020-02-01] MEDS ORDERED: Ondansetron PF 4 MG/2 ML Vial IVP PRN (22:04)
--- NOTE | 2020-02-01 22:11 | PDOC.HHP ---
Hospitalist HPI - History of Present Illness Palpitations, nausea, vomiting History of Present Illness: Patient is a 45 year old male with PMH alcohol abuse who stopped drinking last night now presents to ED with palpitaions, nausea, abdominal discomfort. He has history of DT and this is similar to previous. drinks 6+ drinks a day, attempted to quit but failed, is incoherent but talkative, denies fever, chills , SOB, chest pain, body aches. Reports COVID infection but failed ED screen and no symptoms I can appreciate. labs abnormal as below and concerning for alcoholic ketoacidosis, patient admitted for further evalaution and treatment. Hospitalist ROS - Review of Systems Constitutional: denies: fever, chills, sweats, weakness, malaise, other Eyes: denies: pain, vision change, conjunctivae inflammation, eyelid inflammation, redness, other ENT: denies: ear pain, ear discharge, nose pain, nose discharge, nose congestion , mouth pain, mouth swelling, throat pain, throat swelling, other Respiratory: denies: cough, dry, shortness of breath, hemoptysis, SOB with excertion, pleuritic pain, sputum, wheezing, other Cardiovascular: reports: palpitations. denies: chest pain, orthopnea, paroxysmal noc. dyspnea, edema, light headedness, other Gastrointestinal: reports: nausea, vomiting Genitourinary: denies: dysuria, frequency, incontinence, hematuria, retention, other Musculoskeletal: denies: neck pain, shoulder pain, arm pain, back pain, hand pain, leg pain, foot pain, other Skin: denies: rash, lesions, ailyn, bruising, other Neurological: denies: weakness, numbness, incoordination, change in speech, confusion, seizures, other All other systems reviewed; all pertinent +/- noted in HPI/Subj Hospitalist History - Past Medical History Other Medical History: alcohol abuse dt - Past Surgical History Other Surgical History: stomach ulcer - Family History Family History: reports: no pertinent history - Social History Smoking Status: Former smoker Alcohol: reports: Heavy (see hpi) Drugs: reports: none - Exam General Appearance: NAD, awake alert General - other findings: incoherent Eye: PERRL, anicteric sclera ENT: normocephalic atraumatic, no oropharyngeal lesions, moist mucosa Neck: supple, symmetric, no JVD, no thyromegaly, no lymphadenopathy, no carotid bruit Heart: RRR, no murmur, no gallops, no rubs, normal peripheral pulses Respiratory: CTAB, no wheezes, no rales, no ronchi, normal chest expansion, no tachypnea, normal percussion Gastrointestinal: soft, non-tender, non-distended, normal bowel sounds, no palpable masses, no hepatomegaly, no splenomegaly, no bruit Extremities: no cyanosis, no clubbing, no edema Skin: normal turgor, no lesions, no rashes Neurological: cranial nerve grossly intact, normal sensation to touch, no weakness, no focal deficits, no new deficit Musculoskeletal: normal tone, normal strength, no muscle wasting Psychiatric: A&O x 3 Psychiatric - other findings: incoherent but awake and alert Hospitalist Results - Labs Result Diagrams: 02/01/20 18:19 02/01/20 18:19 Lab results: WBC 12.1 thou/uL (4.8-10.8) H 02/01/20 18:19 Hgb 13.6 g/dL (14.0-18.0) L 02/01/20 18:19 Hct 40.5 % (42.0-52.0) L 02/01/20 18:19 MCV 102.0 fL (78.0-98.0) H 02/01/20 18:19 Plt Count 227 thou/uL (130-400) 02/01/20 18:19 Neutrophils % 72.1 % (42.0-75.0) 02/01/20 18:19 Sodium 140 mmol/L (136-145) 02/01/20 18:19 Potassium 3.3 mmol/L (3.5-5.1) L 02/01/20 18:19 Chloride 107 mmol/L (98-107) 02/01/20 18:19 Carbon Dioxide 12 mmol/L (22-29) L 02/01/20 18:19 BUN 23 mg/dL (8.9-20.6) H 02/01/20 18:19 Creatinine 1.18 mg/dL (0.7-1.3) 02/01/20 18:19 Glucose 174 mg/dL (70-105) H 02/01/20 18:19 Calcium 8.8 mg/dL (7.8-10.44) 02/01/20 18:19 Total Bilirubin 2.7 mg/dL (0.2-1.2) H 02/01/20 18:19 AST 55 U/L (5-34) H 02/01/20 18:19 ALT 79 U/L (8-55) H 02/01/20 18:19 Alkaline Phosphatase 97 U/L (40-110) 02/01/20 18:19 Ammonia 28 umol/L (18-72) 02/01/20 18:19 Creatine Kinase 17 U/L (30-200) L 02/01/20 18:19 Troponin I 0.018 ng/mL (< 0.028) 02/01/20 18:19 Serum Total Protein 7.1 g/dL (6.0-8.3) 02/01/20 18:19 Albumin 4.1 g/dL (3.5-5.0) 02/01/20 18:19 Lipase 163 U/L (8-78) H 02/01/20 18:19 Urine Ketones 20 mg/dL (Negative) A 02/01/20 20:12 Urine Blood Negative (Negative) 02/01/20 20:12 Urine Nitrite Negative (Negative) 02/01/20 20:12 Ur Leukocyte Esterase Negative Elian/uL (Negative) 02/01/20 20:12 Urine RBC 0-3 HPF (0-3) 02/01/20 20:12 Urine WBC 0-3 HPF (0-3) 02/01/20 20:12 Ur Squamous Epith Cells None Seen HPF (0-3) 02/01/20 20:12 Urine Bacteria None Seen HPF (None Seen) 02/01/20 20:12 Additional comment: VITAL SIGNS Sat Feb 01, 2020 18:02 JEWELS Kong Miranda BP: 154/103 Pulse: 135 Resp: 22 Pain: 1 O2 sat: 98 on (Room Air) Time: 02/01/2020 18:02. VITAL SIGNS Sat Feb 01, 2020 18:06 JEWELS Kong Miranda Temp: 98.4 (Oral) Time: 02/01/2020 18:06. VITAL SIGNS Sat Feb 01, 2020 19:01 JEWELS Siddiqui Madisen BP: 144/102 MAP: 116 Pulse: 124 Resp: 18 O2 sat: 100 on (Room Air) Time: 02/01/2020 19:01. Hospitalist H&P A/P - Plan Plan: 45M with PMH alcohol abuse admitted for # alcoholic ketoacidosis # alcohol withdrawal # leukocytosis # hyperglycemia # hypokalemia - admit to floor - banana bag, IVF - montior closely w/ ASE protocol and PRN ativan - encourage cessation once coherent
[2020-02-02] MEDS ORDERED: Diazepam 5 MG TAB PO PRN (00:34)
[2020-02-02] MEDS ORDERED: Diazepam 5 MG TAB PO SCH (00:45)
[2020-02-02 01:45] VITALS: BMI 22.8
[2020-02-02 04:02] LABS: #Eosinphils 0.1 thou/uL (0.0-0.7); #Lymphocytes 2.3 thou/uL (1.20-3.40); #Monocytes 1.2 thou/uL (0.11-0.59); #Neutrophils 5.5 thou/uL (1.40-6.50); %Basophils 0.4 % (0.0-1.0); %Lymphocytes 24.8 % (21.0-51.0); %Monocytes 12.8 % (0.0-10.0); %Neutrophils 60.9 % (42.0-75.0); Hemoglobin 12.3 g/dL (14.0-18.0); Mean Corpuscular HGB CONC 33.2 g/dL (32.0-36.0); Mean Corpuscular Hemoglobin 34.2 pg (27.0-31.0); Mean Platelet Volume 9.1 fL (7.4-10.4); Platelet Count 169 thou/uL (130-400); RBC Distribution Width 13.5 % (11.5-14.5); Red Blood Cell (RBC) Count 3.58 mill/uL (4.70-6.10); White Blood Cell (WBC) Count 9.1 thou/uL (4.8-10.8)
[2020-02-02] MEDS: Sodium Chloride 0.9% 1,000 ML IV SCH ×3 (04:06→20:57)
[2020-02-02 04:14] LABS: Anion Gap 14 mmol/L (10-20); BUN (Urea Nitrogen) 16 mg/dL (8.9-20.6); Calc. Creatinine Clearance 134 mL/min (70-130); Calcium 8.1 mg/dL (7.8-10.44); Carbon Dioxide 20 mmol/L (22-29); Chloride 110 mmol/L (98-107); Estimated GFR-MDRD Greater than 90; Glucose 100 mg/dL (70-105); Magnesium 2.7 mg/dL (1.6-2.6); Phosphorus 3.7 mg/dL (2.3-4.7); Potassium 3.2 mmol/L (3.5-5.1); Sodium 141 mmol/L (136-145)
[2020-02-02] MEDS: Multivitamin W/ Minerals 1 TAB PO SCH (08:34)
[2020-02-02] MEDS: Enoxaparin Sodium 40 MG/0.4 ML SYRINGE SC SCH (08:34)
[2020-02-02] MEDS: Folic Acid 1 MG TAB PO SCH (08:34)
[2020-02-02] MEDS: Famotidine 20 MG TAB PO SCH ×2 (08:34→20:57)
[2020-02-02] MEDS: Polyethylene Glycol 3350 17 GM Packet PO SCH (08:50)
--- NOTE | 2020-02-02 10:31 | PDOC.HOSPP ---
- Subjective Encounter Date: 02/02/20 Encounter Time: 10:20 Subjective: f/u for ETOH intoxication/withdrawal with longstanding hx of ETOH abuse. Two prior inpt detox stays at [facility] per father's report. - Objective Vital Signs & Weight: Vital Signs (12 hours) Temp Pulse Ox 02/02/20 07:27 98.3 F 02/02/20 04:00 98.3 F 02/02/20 00:00 98.1 F 02/01/20 23:30 98 Weight Weight 168 lb 14.4 oz Most Recent Monitor Data Heart Rate from ECG 117 NIBP 110/72 NIBP BP-Mean 84 Respiration from ECG 33 SpO2 100 I&O: 02/01/20 02/02/20 02/03/20 06:59 06:59 06:59 Intake Total 850 Output Total 500 Balance 350 Result Diagrams: 02/02/20 03:34 02/02/20 03:33 Additional Labs: Laboratory Tests 09/27/19 09/27/19 09/27/19 23:10 23:10 23:11 WBC 6.1 Hgb 14.8 Potassium 3.5 Creatinine Magnesium Total Bilirubin 2.4 H AST 118 H ALT 160 H Lipase TSH 3rd Generation 3.8138 Plasma Alcohol 09/29/19 02/01/20 02/01/20 03:39 18:19 18:19 WBC 12.1 H Hgb 13.6 L Potassium 3.3 L Creatinine 1.18 Magnesium Total Bilirubin 1.3 H 2.7 H AST 114 H 55 H ALT 107 H 79 H Lipase 163 H TSH 3rd Generation Plasma Alcohol Less than 10 02/01/20 02/02/20 18:19 03:33 WBC Hgb Potassium Creatinine Magnesium 2.7 H Total Bilirubin AST ALT Lipase TSH 3rd Generation Plasma Alcohol Less than 10 Radiology Reviewed by me: Yes (CT brain - no acute process) EKG Reviewed by me: Yes (Tele - Sinus tachycardia) Hospitalist ROS - Medication Medications: Active Medications Generic Name Dose Route Start Last Admin Trade Name Freq PRN Reason Stop Dose Admin Enoxaparin Sodium 40 mg 02/02/20 09:00 02/02/20 08:34 Lovenox SC 40 mg 0900 EMELI Administration Famotidine 20 mg 02/02/20 09:00 02/02/20 08:34 Pepcid PO 20 mg BID EMELI Administration Folic Acid 1 mg 02/02/20 09:00 02/02/20 08:34 Folvite PO 1 mg DAILY EMELI Administration Sodium Chloride 1,000 mls @ 125 mls/hr 02/02/20 03:30 02/02/20 04:06 Normal Saline 0.9% IV 1,000 mls .Q8H EMELI Administration Iron/Minerals/Multivitamins 1 tab 02/02/20 09:00 02/02/20 08:34 Theragran M PO 1 tab DAILY EMELI Administration Polyethylene Glycol 17 gm 02/02/20 09:00 02/02/20 08:50 Miralax PO Not Given DAILY EMELI - Exam General Appearance: awake alert General - other findings: responsive to questions Eye: PERRL, anicteric sclera ENT: normocephalic atraumatic, no oropharyngeal lesions Neck: supple, symmetric, no JVD, no thyromegaly, no lymphadenopathy Heart: no murmur, no gallops, no rubs, normal peripheral pulses Heart - other findings: S1, S2 with tachycardia Respiratory: CTAB, no wheezes, no rales, no ronchi, normal chest expansion Gastrointestinal: soft, non-tender, non-distended, normal bowel sounds, no palpable masses Extremities: no cyanosis, no clubbing, no edema Skin: normal turgor, no lesions Neurological: cranial nerve grossly intact Neurological - other findings: mild asterixis Musculoskeletal: generalized weakness Psychiatric: oriented to person, oriented to place Hosp A/P (1) Alcohol abuse Code(s): F10.10 - ALCOHOL ABUSE, UNCOMPLICATED Status: Acute Plan: Acute/chronic ETOH abuse, CM for inpt treatment options (2) Alcohol withdrawal Code(s): F10.239 - ALCOHOL DEPENDENCE WITH WITHDRAWAL, UNSPECIFIED Status: Acute Plan: ASE protocol, Ativan IV, Banana bag daily (3) Hypokalemia Code(s): E87.6 - HYPOKALEMIA Status: Acute Plan: KCL 40meq BID, serial monitoring (4) Alcoholic hepatitis Code(s): K70.10 - ALCOHOLIC HEPATITIS WITHOUT ASCITES Status: Chronic Plan: Supportive measures (5) Pancreatitis, alcoholic, acute Code(s): K85.20 - ALCOHOL INDUCED ACUTE PANCREATITIS WITHOUT NECROSIS OR INFCT Status: Acute Plan: mild, soft diet, serial monitoring - Plan plan discussed w/ family, PT/OT, social insurance adviser, out of bed/ambulate, DVT proph w/SCDs Stable overall Continue IVF's Banana bad IV daily Ativan IV PRN withdrawal CM consult for detox programs AM lab: CMP, CBC, Mg++, PO3 Updated family of clinical situation
[2020-02-02] MEDS ORDERED: Potassium Chloride 20 MEQ TAB PO SCH (10:45)
[2020-02-02] MEDS: Multivitamins, Adult 10 ML, Folic Acid 1 MG, Thiamine HCl 100 MG in Dextrose 5 %-0.45 %... IV SCH (10:59)
[2020-02-02] MEDS: Potassium Chloride 20 MEQ TAB PO SCH (17:46)
[2020-02-03 04:27] LABS: #Eosinphils 0.1 thou/uL (0.0-0.7); #Lymphocytes 1.5 thou/uL (1.20-3.40); #Monocytes 0.8 thou/uL (0.11-0.59); #Neutrophils 2.8 thou/uL (1.40-6.50); %Basophils 0.5 % (0.0-1.0); %Eosinophils 2.4 % (0.0-10.0); %Monocytes 14.6 % (0.0-10.0); %Neutrophils 53.6 % (42.0-75.0); Hemoglobin 10.4 g/dL (14.0-18.0); Mean Corpuscular HGB CONC 34.4 g/dL (32.0-36.0); Mean Corpuscular Hemoglobin 34.9 pg (27.0-31.0); Platelet Count 146 thou/uL (130-400); RBC Distribution Width 13.6 % (11.5-14.5); Red Blood Cell (RBC) Count 2.99 mill/uL (4.70-6.10); White Blood Cell (WBC) Count 5.1 thou/uL (4.8-10.8)
[2020-02-03 05:07] LABS: ALT (SGPT) 48 U/L (8-55); AST (SGOT) 40 U/L (5-34); Alkaline Phosphatase 65 U/L (40-110); Anion Gap 9 mmol/L (10-20); BUN (Urea Nitrogen) 6 mg/dL (8.9-20.6); Bilirubin, Total 1.2 mg/dL (0.2-1.2); Calc. Creatinine Clearance 142 mL/min (70-130); Calcium 7.5 mg/dL (7.8-10.44); Carbon Dioxide 20 mmol/L (22-29); Chloride 112 mmol/L (98-107); Estimated GFR-MDRD Greater than 90; Globulin 2.1 g/dL (2.4-3.5); Glucose 117 mg/dL (70-105); Lipase 235 U/L (8-78); Phosphorus 2.1 mg/dL (2.3-4.7); Potassium 3.3 mmol/L (3.5-5.1); Protein, Total 5.1 g/dL (6.0-8.3); Sodium 138 mmol/L (136-145)
[2020-02-03] MEDS: Sodium Chloride 0.9% 1,000 ML IV SCH ×2 (05:14→14:03)
[2020-02-03] MEDS: Famotidine 20 MG TAB PO SCH ×2 (09:06→20:19)
[2020-02-03] MEDS: Magnesium Oxide 400 MG TAB PO SCH (09:06)
[2020-02-03] MEDS: Potassium Chloride 20 MEQ TAB PO SCH ×3 (09:07→20:20)
[2020-02-03] MEDS: Multivitamin W/ Minerals 1 TAB PO SCH (09:07)
[2020-02-03] MEDS: Folic Acid 1 MG TAB PO SCH (09:07)
[2020-02-03] MEDS: Polyethylene Glycol 3350 17 GM Packet PO SCH (09:07)
[2020-02-03] MEDS: Thiamine 100 MG TAB PO SCH (09:07)
[2020-02-03] MEDS: Enoxaparin Sodium 40 MG/0.4 ML SYRINGE SC SCH (14:02)
[2020-02-03] MEDS: Diazepam 5 MG TAB PO PRN ×2 (14:02→20:20)
[2020-02-03] MEDS: Multivitamins, Adult 10 ML, Folic Acid 1 MG, Thiamine HCl 100 MG in Dextrose 5 %-0.45 %... IV SCH (15:47)
--- NOTE | 2020-02-03 16:26 | PDOC.HOSPP ---
- Subjective Encounter Date: 02/03/20 Encounter Time: 16:20 Subjective: f/u for ETOH abuse/withdrawal and encephalopathy. Intermittently confused per nursing. - Objective Vital Signs & Weight: Vital Signs (12 hours) Temp 02/03/20 15:23 98.0 F 02/03/20 11:06 98.2 F 02/03/20 07:22 98.4 F Weight Admit Weight 168 lb 14.4 oz Weight 168 lb 14.4 oz Most Recent Monitor Data Heart Rate from ECG 89 NIBP 109/74 NIBP BP-Mean 85 Respiration from ECG 14 SpO2 100 I&O: 02/02/20 02/03/20 02/04/20 06:59 06:59 06:59 Intake Total 850 1700 Output Total 500 950 Balance 350 750 Result Diagrams: 02/03/20 03:33 02/03/20 03:33 Additional Labs: Laboratory Tests 09/27/19 09/27/19 09/27/19 23:10 23:10 23:11 WBC 6.1 Hgb 14.8 Potassium 3.5 Creatinine Magnesium Total Bilirubin 2.4 H AST 118 H ALT 160 H Lipase TSH 3rd Generation 3.8138 Plasma Alcohol 09/29/19 02/01/20 02/01/20 03:39 18:19 18:19 WBC 12.1 H Hgb 13.6 L Potassium 3.3 L Creatinine 1.18 Magnesium Total Bilirubin 1.3 H 2.7 H AST 114 H 55 H ALT 107 H 79 H Lipase 163 H TSH 3rd Generation Plasma Alcohol Less than 10 02/01/20 02/02/20 18:19 03:33 WBC Hgb Potassium Creatinine Magnesium 2.7 H Total Bilirubin AST ALT Lipase TSH 3rd Generation Plasma Alcohol Less than 10 EKG Reviewed by me: Yes (Tele - SR) Hospitalist ROS - Medication Medications: Active Medications Generic Name Dose Route Start Last Admin Trade Name Freq PRN Reason Stop Dose Admin Diazepam 5 mg 02/03/20 04:00 02/03/20 14:02 Valium PO 5 mg Q4H PRN Administration FOR ASE 10 OR GREATER Enoxaparin Sodium 40 mg 02/02/20 09:00 02/03/20 14:02 Lovenox SC 40 mg 0900 EMELI Administration Famotidine 20 mg 02/02/20 09:00 02/03/20 09:06 Pepcid PO 20 mg BID EMELI Administration Folic Acid 1 mg 06/07/20 09:00 02/03/20 09:07 Folvite PO 1 mg DAILY EMELI Administration Sodium Chloride 1,000 mls @ 125 mls/hr 02/02/20 03:30 02/03/20 14:03 Normal Saline 0.9% IV 1,000 mls .Q8H EMELI Administration Multivitamins 10 ml/ Folic 1,011.2 mls @ 150 mls/hr 02/02/20 10:45 02/03/20 15:47 Acid 1 mg/ Thiamine HCl 100 mg IV 1,011.2 mls / Dextrose/Sodium Chloride Q24HR EMELI Administration Iron/Minerals/Multivitamins 1 tab 02/02/20 09:00 02/03/20 09:07 Theragran M PO 1 tab DAILY EMELI Administration Magnesium Oxide 400 mg 02/03/20 09:00 02/03/20 09:06 Magnesium Oxide PO 400 mg DAILY EMELI Administration Ondansetron HCl 4 mg 02/01/20 22:04 02/02/20 11:24 Zofran IVP 4 mg Q6H PRN Administration Nausea/Vomiting, use 1st Polyethylene Glycol 17 gm 02/02/20 09:00 02/03/20 09:07 Miralax PO Not Given DAILY EMELI Potassium Chloride 40 meq 02/02/20 17:00 02/03/20 15:50 K-Dur PO 40 meq BID-WM EMELI Administration Thiamine HCl 100 mg 02/03/20 09:00 02/03/20 09:07 Thiamine PO 100 mg DAILY EMELI Administration - Exam General Appearance: NAD, awake alert Eye: PERRL, anicteric sclera ENT: normocephalic atraumatic, no oropharyngeal lesions Neck: supple, symmetric, no JVD, no thyromegaly, no lymphadenopathy Heart: RRR, no murmur, no gallops, no rubs, normal peripheral pulses Respiratory: CTAB, no wheezes, no rales, no ronchi, normal chest expansion, no tachypnea Gastrointestinal: soft, non-tender, non-distended, normal bowel sounds, no palpable masses Extremities: no cyanosis, no clubbing, no edema Skin: normal turgor Neurological: cranial nerve grossly intact Neurological - other findings: mild asterixis Musculoskeletal: normal tone, generalized weakness Psychiatric: oriented to person, oriented to place Hosp A/P (1) Alcohol abuse Code(s): F10.10 - ALCOHOL ABUSE, UNCOMPLICATED Status: Acute Plan: ASE protocol, continue Ativan/Valium, Banana bag IV daily (2) Alcohol withdrawal Code(s): F10.239 - ALCOHOL DEPENDENCE WITH WITHDRAWAL, UNSPECIFIED Status: Acute (3) Hypokalemia Code(s): E87.6 - HYPOKALEMIA Status: Acute Plan: KCL 40meq TID, repeat K+ level in am (4) Alcoholic hepatitis Code(s): K70.10 - ALCOHOLIC HEPATITIS WITHOUT ASCITES Status: Chronic (5) Pancreatitis, alcoholic, acute Code(s): K85.20 - ALCOHOL INDUCED ACUTE PANCREATITIS WITHOUT NECROSIS OR INFCT Status: Acute Plan: Persistent, minimally symptomatic, supportive mgmt, IVF's - Plan PT/OT, social media analyst, out of bed/ambulate, DVT proph w/SCDs Stable overall Continue IVF's Banana bad IV daily Ativan IV PRN withdrawal CM consult for detox programs AM lab: CMP, CBC, Mg++, PO3 Updated family of clinical situation
[2020-02-04 04:29] LABS: Anion Gap 12 mmol/L (10-20); BUN (Urea Nitrogen) Less than 4 mg/dL (8.9-20.6); Calc. Creatinine Clearance 173 mL/min (70-130); Carbon Dioxide 17 mmol/L (22-29); Chloride 112 mmol/L (98-107); Estimated GFR-MDRD Greater than 90; Glucose 86 mg/dL (70-105); Phosphorus 2.2 mg/dL (2.3-4.7); Sodium 137 mmol/L (136-145)
[2020-02-04 07:22] LABS: Mean Corpuscular HGB CONC 33.2 g/dL (32.0-36.0); Mean Corpuscular Hemoglobin 34.2 pg (27.0-31.0); Mean Platelet Volume 8.5 fL (7.4-10.4); Platelet Count 182 thou/uL (130-400); RBC Distribution Width 13.8 % (11.5-14.5); White Blood Cell (WBC) Count 6.1 thou/uL (4.8-10.8)
[2020-02-04] MEDS: Polyethylene Glycol 3350 17 GM Packet PO SCH (08:54)
[2020-02-04] MEDS: Thiamine 100 MG TAB PO SCH (08:55)
[2020-02-04] MEDS: Potassium Chloride 20 MEQ TAB PO SCH ×2 (08:55→15:39)
[2020-02-04] MEDS: Folic Acid 1 MG TAB PO SCH (08:55)
[2020-02-04] MEDS: Diazepam 5 MG TAB PO PRN ×2 (08:55→15:39)
[2020-02-04] MEDS: Enoxaparin Sodium 40 MG/0.4 ML SYRINGE SC SCH (08:55)
[2020-02-04] MEDS: Magnesium Oxide 400 MG TAB PO SCH (08:55)
[2020-02-04] MEDS: Multivitamin W/ Minerals 1 TAB PO SCH (08:55)
[2020-02-04] MEDS: Famotidine 20 MG TAB PO SCH ×2 (08:55→21:13)
[2020-02-04 09:06] LABS: Band 4 % (5-11); Eosinophils 2 % (0-10); Lymphocytes 37 % (21-51); MDiff Complete? YES; Macrocytosis SLIGHT = 6-15 cells (100X) (0-5/hpf); Metamyelocyte 1 % (0-0); Monocytes 10 % (0-10); Neutrophil 45 % (42-75); Nucleated RBC 2 % (0); Platelet Morphology Comment Appears Adequate; Polychromasia SLIGHT = 2-3 cells (100X) (0-2/hpf); Reactive Lymphocytes 1 % (0-10)
--- NOTE | 2020-02-04 13:40 | PDOC.HOSPP ---
- Subjective Encounter Date: 02/04/20 Encounter Time: 13:35 Subjective: f/u for ETOH intoxication/withdrawal on ASE/Valium/Banana bag. No new issues noted. - Objective Vital Signs & Weight: Vital Signs (12 hours) Temp 02/04/20 11:41 97.8 F 02/04/20 07:22 98.4 F Weight Admit Weight 168 lb 14.4 oz Weight 168 lb 14.4 oz Most Recent Monitor Data Heart Rate from ECG 116 NIBP 121/94 NIBP BP-Mean 103 Respiration from ECG 20 SpO2 100 I&O: 02/03/20 02/04/20 02/05/20 06:59 06:59 06:59 Intake Total 1700 2630 Output Total 950 2650 Balance 750 -20 Result Diagrams: 02/04/20 07:11 02/04/20 03:08 Additional Labs: Laboratory Tests 09/27/19 09/27/19 09/27/19 23:10 23:10 23:11 WBC 6.1 Hgb 14.8 Potassium 3.5 Creatinine Magnesium Total Bilirubin 2.4 H AST 118 H ALT 160 H Lipase TSH 3rd Generation 3.8138 Plasma Alcohol 09/29/19 02/01/20 02/01/20 03:39 18:19 18:19 WBC 12.1 H Hgb 13.6 L Potassium 3.3 L Creatinine 1.18 Magnesium Total Bilirubin 1.3 H 2.7 H AST 114 H 55 H ALT 107 H 79 H Lipase 163 H TSH 3rd Generation Plasma Alcohol Less than 10 02/01/20 02/02/20 18:19 03:33 WBC Hgb Potassium Creatinine Magnesium 2.7 H Total Bilirubin AST ALT Lipase TSH 3rd Generation Plasma Alcohol Less than 10 EKG Reviewed by me: Yes (Tele - Sinus tachycardia) Hospitalist ROS - Medication Medications: Active Medications Generic Name Dose Route Start Last Admin Trade Name Freq PRN Reason Stop Dose Admin Diazepam 5 mg 02/03/20 04:00 02/04/20 08:55 Valium PO 5 mg Q4H PRN Administration FOR ASE 10 OR GREATER Enoxaparin Sodium 40 mg 02/02/20 09:00 02/04/20 08:55 Lovenox SC 40 mg 0900 EMELI Administration Famotidine 20 mg 02/02/20 09:00 02/04/20 08:55 Pepcid PO 20 mg BID EMELI Administration Folic Acid 1 mg 02/02/20 09:00 02/04/20 08:55 Folvite PO 1 mg DAILY EMELI Administration Multivitamins 10 ml/ Folic 1,011.2 mls @ 150 mls/hr 02/02/20 10:45 02/03/20 15:47 Acid 1 mg/ Thiamine HCl 100 mg IV 1,011.2 mls / Dextrose/Sodium Chloride Q24HR EMELI Administration Iron/Minerals/Multivitamins 1 tab 02/02/20 09:00 02/04/20 08:55 Theragran M PO 1 tab DAILY EMELI Administration Magnesium Oxide 400 mg 02/03/20 09:00 02/04/20 08:55 Magnesium Oxide PO 400 mg DAILY EMELI Administration Ondansetron HCl 4 mg 02/01/20 22:04 02/02/20 11:24 Zofran IVP 4 mg Q6H PRN Administration Nausea/Vomiting, use 1st Polyethylene Glycol 17 gm 02/02/20 09:00 02/04/20 08:54 Miralax PO 17 gm DAILY EMELI Administration Potassium Chloride 40 meq 02/03/20 21:00 02/04/20 08:55 K-Dur PO 40 meq TID EMELI Administration Thiamine HCl 100 mg 02/03/20 09:00 02/04/20 08:55 Thiamine PO 100 mg DAILY EMELI Administration - Exam General Appearance: NAD, awake alert Eye: PERRL, anicteric sclera ENT: normocephalic atraumatic, no oropharyngeal lesions Neck: supple, symmetric, no JVD, no thyromegaly Heart: no murmur, no gallops, no rubs, normal peripheral pulses Heart - other findings: S1, S2 tachycardic Respiratory: CTAB, no wheezes, no rales, no ronchi, normal chest expansion, no tachypnea Gastrointestinal: soft, non-tender, non-distended, normal bowel sounds, no palpable masses Extremities: no cyanosis, no clubbing, no edema Skin: normal turgor, no lesions Neurological: cranial nerve grossly intact, no new deficit Neurological - other findings: mild asterixis Musculoskeletal: normal tone, normal strength Psychiatric: normal affect Hosp A/P (1) Alcohol abuse Code(s): F10.10 - ALCOHOL ABUSE, UNCOMPLICATED Status: Acute Plan: Continue ASA protocol, Valium PRN, detox program options (2) Alcohol withdrawal Code(s): F10.239 - ALCOHOL DEPENDENCE WITH WITHDRAWAL, UNSPECIFIED Status: Acute Plan: See #1 above (3) Hypokalemia Code(s): E87.6 - HYPOKALEMIA Status: Acute Plan: Improving, continue KCL supplementation (4) Alcoholic hepatitis Code(s): K70.10 - ALCOHOLIC HEPATITIS WITHOUT ASCITES Status: Chronic (5) Pancreatitis, alcoholic, acute Code(s): K85.20 - ALCOHOL INDUCED ACUTE PANCREATITIS WITHOUT NECROSIS OR INFCT Status: Acute Plan: Asymptomatic currently, supportive mgmt, avoid ETOH - Plan social insurance analyst, out of bed/ambulate, DVT proph w/SCDs Stable overall Banana bad IV daily Ativan/Valium PRN withdrawal CM consult for detox programs AM lab: Lipase Updated family of clinical situation Transfer to medical floor
[2020-02-04] MEDS: Multivitamins, Adult 10 ML, Folic Acid 1 MG, Thiamine HCl 100 MG in Dextrose 5 %-0.45 %... IV SCH (15:39)
[2020-02-05] MEDS: Magnesium Oxide 400 MG TAB PO SCH (07:59)
[2020-02-05] MEDS: Potassium Chloride 20 MEQ TAB PO SCH ×2 (07:59→18:53)
[2020-02-05] MEDS: Thiamine 100 MG TAB PO SCH (07:59)
[2020-02-05] MEDS: Enoxaparin Sodium 40 MG/0.4 ML SYRINGE SC SCH (07:59)
[2020-02-05] MEDS: Famotidine 20 MG TAB PO SCH ×2 (07:59→20:32)
[2020-02-05] MEDS: Folic Acid 1 MG TAB PO SCH (07:59)
[2020-02-05] MEDS: Multivitamin W/ Minerals 1 TAB PO SCH (07:59)
[2020-02-05] MEDS: Polyethylene Glycol 3350 17 GM Packet PO SCH (08:00)
[2020-02-05] MEDS: Multivitamins, Adult 10 ML, Folic Acid 1 MG, Thiamine HCl 100 MG in Dextrose 5 %-0.45 %... IV SCH (10:21)
[2020-02-05] MEDS ORDERED: chlordiazePOXIDE HCl 25 MG CAP PO SCH (10:45)
--- NOTE | 2020-02-05 10:49 | PDOC.HOSPP ---
- Subjective Encounter Date: 02/05/20 Encounter Time: 10:35 Subjective: f/u for ETOH withdrawal with encephalopathy. Still confused and unsteady per nursing. - Objective Vital Signs & Weight: Vital Signs (12 hours) Temp Pulse Resp BP BP Pulse Ox 02/05/20 08:08 98.0 F 97 18 123/81 100 02/05/20 04:15 98.7 F 86 16 113/77 98 Weight Admit Weight 168 lb 14.4 oz Weight 168 lb 14.4 oz Most Recent Monitor Data Heart Rate from ECG 104 NIBP 112/81 NIBP BP-Mean 91 Respiration from ECG 17 SpO2 100 I&O: 02/04/20 02/05/20 02/06/20 06:59 06:59 06:59 Intake Total 2630 1670 Output Total 2650 2500 Balance -20 -830 Result Diagrams: 02/04/20 07:11 02/04/20 03:08 Additional Labs: Laboratory Tests 09/27/19 09/27/19 09/27/19 23:10 23:10 23:11 WBC 6.1 Hgb 14.8 Potassium 3.5 Creatinine Magnesium Total Bilirubin 2.4 H AST 118 H ALT 160 H Lipase TSH 3rd Generation 3.8138 Plasma Alcohol 09/29/19 02/01/20 02/01/20 03:39 18:19 18:19 WBC 12.1 H Hgb 13.6 L Potassium 3.3 L Creatinine 1.18 Magnesium Total Bilirubin 1.3 H 2.7 H AST 114 H 55 H ALT 107 H 79 H Lipase 163 H TSH 3rd Generation Plasma Alcohol Less than 10 02/01/20 02/02/20 18:19 03:33 WBC Hgb Potassium Creatinine Magnesium 2.7 H Total Bilirubin AST ALT Lipase TSH 3rd Generation Plasma Alcohol Less than 10 Hospitalist ROS - Medication Medications: Active Medications Generic Name Dose Route Start Last Admin Trade Name Freq PRN Reason Stop Dose Admin Diazepam 5 mg 02/03/20 04:00 02/04/20 15:39 Valium PO 5 mg Q4H PRN Administration FOR ASE 10 OR GREATER Enoxaparin Sodium 40 mg 02/02/20 09:00 02/05/20 07:59 Lovenox SC 40 mg 0900 EMELI Administration Famotidine 20 mg 02/02/20 09:00 02/05/20 07:59 Pepcid PO 20 mg BID EMELI Administration Folic Acid 1 mg 06/07/20 09:00 02/05/20 07:59 Folvite PO 1 mg DAILY EMELI Administration Multivitamins 10 ml/ Folic 1,011.2 mls @ 150 mls/hr 02/02/20 10:45 02/05/20 10:21 Acid 1 mg/ Thiamine HCl 100 mg IV 1,011.2 mls / Dextrose/Sodium Chloride Q24HR EMELI Administration Iron/Minerals/Multivitamins 1 tab 02/02/20 09:00 02/05/20 07:59 Theragran M PO 1 tab DAILY EMELI Administration Magnesium Oxide 400 mg 02/03/20 09:00 02/05/20 07:59 Magnesium Oxide PO 400 mg DAILY EMELI Administration Ondansetron HCl 4 mg 02/01/20 22:04 02/02/20 11:24 Zofran IVP 4 mg Q6H PRN Administration Nausea/Vomiting, use 1st Polyethylene Glycol 17 gm 02/02/20 09:00 02/05/20 08:00 Miralax PO 17 gm DAILY EMELI Administration Potassium Chloride 40 meq 02/04/20 17:00 02/05/20 07:59 K-Dur PO 40 meq BID-WM EMELI Administration Thiamine HCl 100 mg 02/03/20 09:00 02/05/20 07:59 Thiamine PO 100 mg DAILY EMELI Administration - Exam General Appearance: NAD, awake alert Eye: PERRL, anicteric sclera ENT: normocephalic atraumatic, no oropharyngeal lesions Neck: supple, symmetric, no JVD, no thyromegaly, no lymphadenopathy Heart: RRR, no murmur, no gallops, no rubs, normal peripheral pulses Heart - other findings: S1, S2 Respiratory: CTAB, no wheezes, no rales, no ronchi, normal chest expansion Gastrointestinal: soft, non-tender, non-distended, normal bowel sounds, no palpable masses Extremities: no cyanosis, no clubbing Skin - other findings: multiple areas of ecchymosis and bruising on UE's Neurological: cranial nerve grossly intact Neurological - other findings: + asterixis Musculoskeletal: generalized weakness Psychiatric: oriented to person Hosp A/P (1) Alcohol abuse Code(s): F10.10 - ALCOHOL ABUSE, UNCOMPLICATED Status: Acute Plan: Detox program options when stable (2) Alcohol withdrawal Code(s): F10.239 - ALCOHOL DEPENDENCE WITH WITHDRAWAL, UNSPECIFIED Status: Acute Plan: Start Librium 25mg TID (3) Hypokalemia Code(s): E87.6 - HYPOKALEMIA Status: Acute Plan: KCL supplementation (4) Alcoholic hepatitis Code(s): K70.10 - ALCOHOLIC HEPATITIS WITHOUT ASCITES Status: Chronic (5) Pancreatitis, alcoholic, acute Code(s): K85.20 - ALCOHOL INDUCED ACUTE PANCREATITIS WITHOUT NECROSIS OR INFCT Status: Acute - Plan plan discussed w/ family, PT/OT, licensed master social worker, out of bed/ambulate, DVT proph w/SCDs Stable overall Banana bag IV daily Ativan/Valium PRN withdrawal, start Librium 25mg TID CM consult for detox programs Updated family of clinical situation
[2020-02-05] MEDS: chlordiazePOXIDE HCl 25 MG CAP PO SCH ×2 (15:56→20:33)
[2020-02-06] MEDS: Folic Acid 1 MG TAB PO SCH (09:08)
[2020-02-06] MEDS: Potassium Chloride 20 MEQ TAB PO SCH ×2 (09:09→16:23)
[2020-02-06] MEDS: Multivitamin W/ Minerals 1 TAB PO SCH (09:09)
[2020-02-06] MEDS: Polyethylene Glycol 3350 17 GM Packet PO SCH (09:09)
[2020-02-06] MEDS: Thiamine 100 MG TAB PO SCH (09:09)
[2020-02-06] MEDS: Magnesium Oxide 400 MG TAB PO SCH (09:09)
[2020-02-06] MEDS: Enoxaparin Sodium 40 MG/0.4 ML SYRINGE SC SCH (09:10)
[2020-02-06] MEDS: Famotidine 20 MG TAB PO SCH ×2 (09:10→21:29)
[2020-02-06] MEDS: chlordiazePOXIDE HCl 25 MG CAP PO SCH ×3 (09:26→21:29)
[2020-02-06] MEDS: Multivitamins, Adult 10 ML, Folic Acid 1 MG, Thiamine HCl 100 MG in Dextrose 5 %-0.45 %... IV SCH (10:43)
--- NOTE | 2020-02-06 14:02 | PDOC.HOSPP ---
- Subjective Encounter Date: 02/06/20 Encounter Time: 13:50 Subjective: f/u for ETOH withdrawal/encephalopathy. Still confused per nursing. No withdrawal seizures. - Objective Vital Signs & Weight: Vital Signs (12 hours) Temp Pulse Pulse Resp BP BP BP 02/06/20 12:25 140 H 108/75 02/06/20 09:12 98.3 F 127 H 16 122/84 02/06/20 09:09 02/06/20 04:15 98.5 F 100 20 123/80 BP Pulse Ox 02/06/20 12:25 02/06/20 09:12 100 02/06/20 09:09 100 02/06/20 04:15 123/80 100 Weight Admit Weight 168 lb 14.4 oz Weight 168 lb 14.4 oz Most Recent Monitor Data Heart Rate from ECG 104 NIBP 112/81 NIBP BP-Mean 91 Respiration from ECG 17 SpO2 100 I&O: 02/05/20 02/06/20 02/07/20 06:59 06:59 06:59 Intake Total 1670 120 Output Total 2500 900 Balance -830 -780 Result Diagrams: 02/04/20 07:11 02/04/20 03:08 Additional Labs: Laboratory Tests 09/27/19 09/27/19 09/27/19 23:10 23:10 23:11 WBC 6.1 Hgb 14.8 Potassium 3.5 Creatinine Magnesium Total Bilirubin 2.4 H AST 118 H ALT 160 H Lipase TSH 3rd Generation 3.8138 Plasma Alcohol 09/29/19 02/01/20 02/01/20 03:39 18:19 18:19 WBC 12.1 H Hgb 13.6 L Potassium 3.3 L Creatinine 1.18 Magnesium Total Bilirubin 1.3 H 2.7 H AST 114 H 55 H ALT 107 H 79 H Lipase 163 H TSH 3rd Generation Plasma Alcohol Less than 10 02/01/20 02/02/20 18:19 03:33 WBC Hgb Potassium Creatinine Magnesium 2.7 H Total Bilirubin AST ALT Lipase TSH 3rd Generation Plasma Alcohol Less than 10 Hospitalist ROS - Medication Medications: Active Medications Generic Name Dose Route Start Last Admin Trade Name Freq PRN Reason Stop Dose Admin Chlordiazepoxide HCl 25 mg 02/05/20 15:00 02/06/20 09:26 Librium PO 25 mg TID EMELI Administration Diazepam 5 mg 02/03/20 04:00 02/04/20 15:39 Valium PO 5 mg Q4H PRN Administration FOR ASE 10 OR GREATER Enoxaparin Sodium 40 mg 02/02/20 09:00 02/06/20 09:10 Lovenox SC 40 mg 0900 EMELI Administration Famotidine 20 mg 02/02/20 09:00 02/06/20 09:10 Pepcid PO 20 mg BID EMELI Administration Folic Acid 1 mg 02/02/20 09:00 02/06/20 09:08 Folvite PO 1 mg DAILY EMELI Administration Multivitamins 10 ml/ Folic 1,011.2 mls @ 150 mls/hr 02/02/20 10:45 02/06/20 10:43 Acid 1 mg/ Thiamine HCl 100 mg IV 1,011.2 mls / Dextrose/Sodium Chloride Q24HR EMELI Administration Iron/Minerals/Multivitamins 1 tab 02/02/20 09:00 02/06/20 09:09 Theragran M PO 1 tab DAILY EMELI Administration Magnesium Oxide 400 mg 02/03/20 09:00 02/06/20 09:09 Magnesium Oxide PO 400 mg DAILY EMELI Administration Ondansetron HCl 4 mg 02/01/20 22:04 02/02/20 11:24 Zofran IVP 4 mg Q6H PRN Administration Nausea/Vomiting, use 1st Polyethylene Glycol 17 gm 02/02/20 09:00 02/06/20 09:09 Miralax PO 17 gm DAILY EMELI Administration Potassium Chloride 40 meq 02/04/20 17:00 02/06/20 09:09 K-Dur PO 40 meq BID-WM EMELI Administration Thiamine HCl 100 mg 02/03/20 09:00 02/06/20 09:09 Thiamine PO 100 mg DAILY EMELI Administration - Exam General Appearance: NAD, awake alert Eye: PERRL, anicteric sclera ENT: normocephalic atraumatic, no oropharyngeal lesions Neck: supple, symmetric, no JVD, no thyromegaly, no lymphadenopathy Heart: RRR, no murmur, no gallops, no rubs, normal peripheral pulses Heart - other findings: S1, S2 Respiratory: CTAB, no wheezes, no rales, no ronchi, normal chest expansion Gastrointestinal: soft, non-tender, non-distended, normal bowel sounds, no palpable masses Extremities: no cyanosis, no clubbing, no edema Skin: normal turgor, no lesions Neurological: cranial nerve grossly intact Neurological - other findings: no asterixis Musculoskeletal: normal tone Psychiatric: oriented to person, oriented to place Hosp A/P (1) Alcohol abuse Code(s): F10.10 - ALCOHOL ABUSE, UNCOMPLICATED Status: Acute Plan: Continue ASE protocol, Librium, Detox program options (2) Alcohol withdrawal Code(s): F10.239 - ALCOHOL DEPENDENCE WITH WITHDRAWAL, UNSPECIFIED Status: Acute Plan: Continue Librium, MVI, Thiamine, Folate (3) Hypokalemia Code(s): E87.6 - HYPOKALEMIA Status: Acute (4) Alcoholic hepatitis Code(s): K70.10 - ALCOHOLIC HEPATITIS WITHOUT ASCITES Status: Chronic (5) Pancreatitis, alcoholic, acute Code(s): K85.20 - ALCOHOL INDUCED ACUTE PANCREATITIS WITHOUT NECROSIS OR INFCT Status: Acute - Plan 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
[2020-02-06] MEDS ORDERED: Senokot S 8.6-50 MG TAB PO PRN (22:21)
[2020-02-07] MEDS ORDERED: Lorazepam 2 MG/ML VIAL SLOW IVP SCH ×2 (02:30→21:45)
[2020-02-07] MEDS: Polyethylene Glycol 3350 17 GM Packet PO SCH ×2 (08:47)
[2020-02-07] MEDS: Potassium Chloride 20 MEQ TAB PO SCH ×2 (08:51→18:06)
[2020-02-07] MEDS: Magnesium Oxide 400 MG TAB PO SCH (08:51)
[2020-02-07] MEDS: Famotidine 20 MG TAB PO SCH ×2 (08:51→21:54)
[2020-02-07] MEDS: Folic Acid 1 MG TAB PO SCH (08:51)
[2020-02-07] MEDS: Enoxaparin Sodium 40 MG/0.4 ML SYRINGE SC SCH (08:51)
[2020-02-07] MEDS: Thiamine 100 MG TAB PO SCH (08:51)
[2020-02-07] MEDS: Multivitamin W/ Minerals 1 TAB PO SCH (08:51)
[2020-02-07] MEDS: chlordiazePOXIDE HCl 25 MG CAP PO SCH ×3 (10:45→21:54)
[2020-02-07] MEDS: Multivitamins, Adult 10 ML, Folic Acid 1 MG, Thiamine HCl 100 MG in Dextrose 5 %-0.45 %... IV SCH (10:46)
--- NOTE | 2020-02-07 11:47 | PDOC.HOSPP ---
- Subjective Encounter Date: 02/07/20 Encounter Time: 11:45 Subjective: f/u for ETOH withdrawal/abuse with improvement in confusion. No seizure activity. Working with PT for mobilization. - Objective Vital Signs & Weight: Vital Signs (12 hours) Temp Pulse Resp BP BP Pulse Ox 02/07/20 08:00 98.6 F 100 18 118/66 118/66 97 02/07/20 00:05 98.3 F 84 18 115/79 115/79 100 Weight Admit Weight 168 lb 14.4 oz Weight 168 lb 14.4 oz Most Recent Monitor Data Heart Rate from ECG 104 NIBP 112/81 NIBP BP-Mean 91 Respiration from ECG 17 SpO2 100 I&O: 02/06/20 02/07/20 02/08/20 06:59 06:59 06:59 Intake Total 120 3240 350 Output Total 900 625 Balance -780 2615 350 Result Diagrams: 02/04/20 07:11 02/04/20 03:08 Additional Labs: Laboratory Tests 09/27/19 09/27/19 09/27/19 23:10 23:10 23:11 WBC 6.1 Hgb 14.8 Potassium 3.5 Creatinine Magnesium Total Bilirubin 2.4 H AST 118 H ALT 160 H Lipase TSH 3rd Generation 3.8138 Plasma Alcohol 09/29/19 02/01/20 02/01/20 03:39 18:19 18:19 WBC 12.1 H Hgb 13.6 L Potassium 3.3 L Creatinine 1.18 Magnesium Total Bilirubin 1.3 H 2.7 H AST 114 H 55 H ALT 107 H 79 H Lipase 163 H TSH 3rd Generation Plasma Alcohol Less than 10 02/01/20 02/02/20 18:19 03:33 WBC Hgb Potassium Creatinine Magnesium 2.7 H Total Bilirubin AST ALT Lipase TSH 3rd Generation Plasma Alcohol Less than 10 Hospitalist ROS - Medication Medications: Active Medications Generic Name Dose Route Start Last Admin Trade Name Freq PRN Reason Stop Dose Admin Chlordiazepoxide HCl 25 mg 02/05/20 15:00 02/07/20 10:45 Librium PO 25 mg TID EMELI Administration Diazepam 5 mg 02/03/20 04:00 02/04/20 15:39 Valium PO 5 mg Q4H PRN Administration FOR ASE 10 OR GREATER Enoxaparin Sodium 40 mg 02/02/20 09:00 02/07/20 08:51 Lovenox SC 40 mg 0900 EMELI Administration Famotidine 20 mg 02/02/20 09:00 02/07/20 08:51 Pepcid PO 20 mg BID EMELI Administration Folic Acid 1 mg 02/02/20 09:00 02/07/20 08:51 Folvite PO 1 mg DAILY EMELI Administration Multivitamins 10 ml/ Folic 1,011.2 mls @ 150 mls/hr 02/02/20 10:45 02/07/20 10:46 Acid 1 mg/ Thiamine HCl 100 mg IV 1,011.2 mls / Dextrose/Sodium Chloride Q24HR EMELI Administration Iron/Minerals/Multivitamins 1 tab 02/02/20 09:00 02/07/20 08:51 Theragran M PO 1 tab DAILY EMELI Administration Magnesium Oxide 400 mg 02/03/20 09:00 02/07/20 08:51 Magnesium Oxide PO 400 mg DAILY EMELI Administration Ondansetron HCl 4 mg 02/01/20 22:04 02/02/20 11:24 Zofran IVP 4 mg Q6H PRN Administration Nausea/Vomiting, use 1st Polyethylene Glycol 17 gm 02/02/20 09:00 02/07/20 08:47 Miralax PO Not Given DAILY EMELI Polyethylene Glycol 17 gm 02/07/20 09:00 02/07/20 08:47 Miralax PO Not Given DAILY EMELI Potassium Chloride 40 meq 02/04/20 17:00 02/07/20 08:51 K-Dur PO 40 meq BID-WM EMELI Administration Thiamine HCl 100 mg 02/03/20 09:00 02/07/20 08:51 Thiamine PO 100 mg DAILY EMELI Administration - Exam General Appearance: NAD, awake alert Eye: PERRL, anicteric sclera ENT: normocephalic atraumatic, no oropharyngeal lesions Neck: supple, symmetric, no JVD, no thyromegaly, no lymphadenopathy Heart: RRR, no murmur, no gallops, no rubs, normal peripheral pulses Heart - other findings: S1, S2 Respiratory: CTAB, no wheezes, no rales, no ronchi, normal chest expansion Gastrointestinal: soft, non-tender, non-distended, normal bowel sounds, no palpable masses Extremities: no cyanosis, no clubbing, no edema Skin: normal turgor Neurological: cranial nerve grossly intact, no new deficit Musculoskeletal: normal tone, generalized weakness Psychiatric: normal affect, A&O x 3 Hosp A/P (1) Alcohol abuse Code(s): F10.10 - ALCOHOL ABUSE, UNCOMPLICATED Status: Acute Plan: Detox program as inpt once stabilized (2) Alcohol withdrawal Code(s): F10.239 - ALCOHOL DEPENDENCE WITH WITHDRAWAL, UNSPECIFIED Status: Acute Plan: Continue Librium, MVI/Thiamine/Folate (3) Hypokalemia Code(s): E87.6 - HYPOKALEMIA Status: Acute (4) Alcoholic hepatitis Code(s): K70.10 - ALCOHOLIC HEPATITIS WITHOUT ASCITES Status: Chronic (5) Pancreatitis, alcoholic, acute Code(s): K85.20 - ALCOHOL INDUCED ACUTE PANCREATITIS WITHOUT NECROSIS OR INFCT Status: Acute Plan: Asymptomatic currently, tolerating regular po intake - Plan plan discussed w/ family, 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 Likely transition to this facility 02/10/20
[2020-02-08] MEDS: HYDROcodone/Acetaminophen 5/325 mg Tablet PO PRN (08:09)
[2020-02-08] MEDS: Magnesium Oxide 400 MG TAB PO SCH (08:10)
[2020-02-08] MEDS: Multivitamin W/ Minerals 1 TAB PO SCH (08:10)
[2020-02-08] MEDS: Folic Acid 1 MG TAB PO SCH (08:10)
[2020-02-08] MEDS: Multivit, Therapeutic 1 TAB PO SCH (08:11)
[2020-02-08] MEDS: Famotidine 20 MG TAB PO SCH ×2 (08:11→21:14)
[2020-02-08] MEDS: Polyethylene Glycol 3350 17 GM Packet PO SCH ×2 (08:12)
[2020-02-08] MEDS: Enoxaparin Sodium 40 MG/0.4 ML SYRINGE SC SCH (08:13)
[2020-02-08] MEDS: Potassium Chloride 20 MEQ TAB PO SCH ×2 (08:13→17:12)
[2020-02-08] MEDS: Thiamine 100 MG TAB PO SCH (08:15)
[2020-02-08] MEDS: chlordiazePOXIDE HCl 25 MG CAP PO PRN ×2 (09:08→18:03)
[2020-02-08 12:19] LABS: SARS-CoV-2 MS2 Positive; SARS-CoV-2 N Gene Negative; SARS-CoV-2 S Gene Negative; SARS-CoV-2 orf1ab Negative
--- NOTE | 2020-02-08 17:33 | PDOC.HOSPP ---
- Subjective Encounter Date: 02/08/20 Subjective: No new complaints - Objective Vital Signs & Weight: Vital Signs (12 hours) Temp Pulse Resp BP BP Pulse Ox 02/08/20 16:00 98.2 F 83 16 127/85 100 02/08/20 12:00 123/88 02/08/20 11:53 97.2 F L 106 H 18 123/88 100 02/08/20 08:00 112/71 100 02/08/20 07:29 98.4 F 97 18 113/77 100 Weight Admit Weight 168 lb 14.4 oz Weight 168 lb 14.4 oz Most Recent Monitor Data Heart Rate from ECG 104 NIBP 112/81 NIBP BP-Mean 91 Respiration from ECG 17 SpO2 100 I&O: 02/07/20 02/08/20 02/09/20 06:59 06:59 06:59 Intake Total 3240 2415 Output Total 625 450 Balance 2615 1965 Result Diagrams: 02/04/20 07:11 02/04/20 03:08 Hospitalist ROS - Medication Medications: Active Medications Generic Name Dose Route Start Last Admin Trade Name Freq PRN Reason Stop Dose Admin Hydrocodone Bitart/Acetaminophen 1 tab 02/01/20 22:04 02/08/20 08:09 [place] 5/325 PO 1 tab Q4H PRN Administration Moderate Pain (4-6) Chlordiazepoxide HCl 25 mg 02/08/20 08:20 02/08/20 09:08 Librium PO 25 mg TID PRN Administration ASE score >8 Diazepam 5 mg 02/03/20 04:00 02/04/20 15:39 Valium PO 5 mg Q4H PRN Administration FOR ASE 10 OR GREATER Enoxaparin Sodium 40 mg 02/02/20 09:00 02/08/20 08:13 Lovenox SC 40 mg 0900 EMELI Administration Famotidine 20 mg 02/02/20 09:00 02/08/20 08:11 Pepcid PO 20 mg BID EMELI Administration Folic Acid 1 mg 02/02/20 09:00 02/08/20 08:10 Folvite PO 1 mg DAILY EMELI Administration Iron/Minerals/Multivitamins 1 tab 02/02/20 09:00 02/08/20 08:10 Theragran M PO 1 tab DAILY EMELI Administration Magnesium Oxide 400 mg 02/03/20 09:00 02/08/20 08:10 Magnesium Oxide PO 400 mg DAILY EMELI Administration Multivitamins 1 tab 02/08/20 09:00 02/08/20 08:11 Theragran PO 1 tab DAILY EMELI Administration Ondansetron HCl 4 mg 02/01/20 22:04 02/02/20 11:24 Zofran IVP 4 mg Q6H PRN Administration Nausea/Vomiting, use 1st Polyethylene Glycol 17 gm 02/07/20 09:00 02/08/20 08:12 Miralax PO Not Given DAILY EMELI Potassium Chloride 40 meq 02/04/20 17:00 02/08/20 17:12 K-Dur PO 40 meq BID-WM EMELI Administration Sodium Chloride 10 ml 02/08/20 09:00 02/08/20 09:09 Flush - Normal Saline IVF 10 ml Q12HR EMELI Administration Thiamine HCl 100 mg 02/03/20 09:00 02/08/20 08:15 Thiamine PO 100 mg DAILY EMELI Administration - Exam General Appearance: awake alert ENT: normocephalic atraumatic Neck: supple Heart: RRR Respiratory: normal chest expansion, no tachypnea Gastrointestinal: soft Neurological: cranial nerve grossly intact, no focal deficits Hosp A/P - Plan Hosp A/P (1) Alcohol abuse Code(s): F10.10 - ALCOHOL ABUSE, UNCOMPLICATED Status: Acute Plan: Detox program as inpt once stabilized (2) Alcohol withdrawal Code(s): F10.239 - ALCOHOL DEPENDENCE WITH WITHDRAWAL, UNSPECIFIED Status: Acute Plan: Continue Librium, MVI/Thiamine/Folate (3) Hypokalemia Code(s): E87.6 - HYPOKALEMIA Status: Acute (4) Alcoholic hepatitis Code(s): K70.10 - ALCOHOLIC HEPATITIS WITHOUT ASCITES Status: Chronic (5) Pancreatitis, alcoholic, acute Code(s): K85.20 - ALCOHOL INDUCED ACUTE PANCREATITIS WITHOUT NECROSIS OR INFCT Status: Acute Plan: Asymptomatic currently, tolerating regular po intake - Plan 02/06: plan discussed w/ family, 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 Likely transition to this facility 02/10/2002/07: No new complaints. His AST score remains below 8. Change chlordiazepoxide to as needed. The patient remains unsteady.
[2020-02-08] MEDS ORDERED: Lorazepam 1 MG TAB PO SCH (20:30)
[2020-02-09 04:53] LABS: Anion Gap 9 mmol/L (10-20); BUN (Urea Nitrogen) 8 mg/dL (8.9-20.6); Calc. Creatinine Clearance 152 mL/min (70-130); Carbon Dioxide 24 mmol/L (22-29); Chloride 110 mmol/L (98-107); Estimated GFR-MDRD Greater than 90; Glucose 91 mg/dL (70-105); Potassium 3.8 mmol/L (3.5-5.1); Sodium 139 mmol/L (136-145)
[2020-02-09 05:06] LABS: Eosinophils 1 % (0-10); Hemoglobin 11.4 g/dL (14.0-18.0); Hypochromia SLIGHT = 6-15 cells (100X) (0-5/hpf); Lymphocytes 42 % (21-51); MDiff Complete? YES; Macrocytosis SLIGHT = 6-15 cells (100X) (0-5/hpf); Mean Corpuscular HGB CONC 31.3 g/dL (32.0-36.0); Mean Corpuscular Hemoglobin 32.5 pg (27.0-31.0); Mean Platelet Volume 8.6 fL (7.4-10.4); Monocytes 7 % (0-10); Neutrophil 50 % (42-75); Platelet Count 320 thou/uL (130-400); Platelet Morphology Comment Appears Adequate; RBC Distribution Width 14.1 % (11.5-14.5); White Blood Cell (WBC) Count 5.9 thou/uL (4.8-10.8)
[2020-02-09] MEDS: Potassium Chloride 20 MEQ TAB PO SCH ×2 (08:53→17:42)
[2020-02-09] MEDS: Famotidine 20 MG TAB PO SCH ×2 (08:54→20:02)
[2020-02-09] MEDS: Enoxaparin Sodium 40 MG/0.4 ML SYRINGE SC SCH (08:54)
[2020-02-09] MEDS: Multivit, Therapeutic 1 TAB PO SCH (08:54)
[2020-02-09] MEDS: Multivitamin W/ Minerals 1 TAB PO SCH (08:54)
[2020-02-09] MEDS: Magnesium Oxide 400 MG TAB PO SCH (08:54)
[2020-02-09] MEDS: Folic Acid 1 MG TAB PO SCH (08:55)
[2020-02-09] MEDS: HYDROcodone/Acetaminophen 5/325 mg Tablet PO PRN (08:55)
[2020-02-09] MEDS: Polyethylene Glycol 3350 17 GM Packet PO SCH (08:56)
[2020-02-09] MEDS: Thiamine 100 MG TAB PO SCH (09:03)
--- NOTE | 2020-02-09 12:05 | PDOC.HOSPP ---
- Subjective Encounter Date: 02/09/20 Subjective: The patient is still having auditory hallucinations. - Objective Vital Signs & Weight: Vital Signs (12 hours) Temp Pulse Resp BP BP Pulse Ox 02/09/20 08:00 134/92 H 100 02/09/20 07:23 98.0 F 98 18 134/92 H 100 02/09/20 04:00 98.4 F 97 18 140/84 140/84 100 Weight Admit Weight 168 lb 14.4 oz Weight 168 lb 14.4 oz Most Recent Monitor Data Heart Rate from ECG 104 NIBP 112/81 NIBP BP-Mean 91 Respiration from ECG 17 SpO2 100 I&O: 02/08/20 02/09/20 02/10/20 06:59 06:59 06:59 Intake Total 2415 1190 Output Total 450 1400 Balance 1965 - Result Diagrams: 02/09/20 04:29 02/09/20 04:29 Hospitalist ROS - Medication Medications: Active Medications Generic Name Dose Route Start Last Admin Trade Name Freq PRN Reason Stop Dose Admin Hydrocodone Bitart/Acetaminophen 1 tab 02/01/20 22:04 02/09/20 08:55 [place] 5/325 PO 1 tab Q4H PRN Administration Moderate Pain (4-6) Chlordiazepoxide HCl 25 mg 02/08/20 08:20 02/08/20 18:03 Librium PO 25 mg TID PRN Administration ASE score >8 Diazepam 5 mg 02/03/20 04:00 02/04/20 15:39 Valium PO 5 mg Q4H PRN Administration FOR ASE 10 OR GREATER Enoxaparin Sodium 40 mg 02/02/20 09:00 02/09/20 08:54 Lovenox SC 40 mg 09 EMELI Administration Famotidine 20 mg 02/02/20 09:00 02/09/20 08:54 Pepcid PO 20 mg BID EMELI Administration Folic Acid 1 mg 02/02/20 09:00 02/09/20 08:55 Folvite PO 1 mg DAILY EMELI Administration Iron/Minerals/Multivitamins 1 tab 02/02/20 09:00 02/09/20 08:54 Theragran M PO 1 tab DAILY EMELI Administration Magnesium Oxide 400 mg 02/03/20 09:00 02/09/20 08:54 Magnesium Oxide PO 400 mg DAILY EMELI Administration Multivitamins 1 tab 02/08/20 09:00 06/14/20 08:54 Theragran PO 1 tab DAILY EMELI Administration Ondansetron HCl 4 mg 02/01/20 22:04 02/02/20 11:24 Zofran IVP 4 mg Q6H PRN Administration Nausea/Vomiting, use 1st Polyethylene Glycol 17 gm 02/07/20 09:00 02/09/20 08:56 Miralax PO Not Given DAILY EMELI Potassium Chloride 40 meq 02/04/20 17:00 02/09/20 08:53 K-Dur PO 40 meq BID-WM EMELI Administration Sodium Chloride 10 ml 02/08/20 09:00 02/09/20 08:56 Flush - Normal Saline IVF 10 ml Q12HR EMELI Administration Thiamine HCl 100 mg 02/03/20 09:00 02/09/20 09:03 Thiamine PO 100 mg DAILY EMELI Administration - Exam General Appearance: NAD ENT: normocephalic atraumatic Neck: supple Respiratory: normal chest expansion, no tachypnea Extremities: no cyanosis, no clubbing, no edema Hosp A/P - Plan Hosp A/P (1) Alcohol abuse Code(s): F10.10 - ALCOHOL ABUSE, UNCOMPLICATED Status: Acute Plan: Detox program as inpt once stabilized (2) Alcohol withdrawal Code(s): F10.239 - ALCOHOL DEPENDENCE WITH WITHDRAWAL, UNSPECIFIED Status: Acute Plan: Continue Librium, MVI/Thiamine/Folate (3) Hypokalemia Code(s): E87.6 - HYPOKALEMIA Status: Acute (4) Alcoholic hepatitis Code(s): K70.10 - ALCOHOLIC HEPATITIS WITHOUT ASCITES Status: Chronic (5) Pancreatitis, alcoholic, acute Code(s): K85.20 - ALCOHOL INDUCED ACUTE PANCREATITIS WITHOUT NECROSIS OR INFCT Status: Acute Plan: Asymptomatic currently, tolerating regular po intake - Plan 02/06: plan discussed w/ family, 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 Likely transition to this facility 02/10/2002/07: No new complaints. His AST score remains below 8. Change chlordiazepoxide to as needed. The patient remains unsteady. 02/08: The patient is having recurrent auditory hallucinations. This is likely due to underlying psychiatric illness. I will start the patient on nocturnal Seroquel to see if that can help. Apparently, the patient has to be physically steady to be admitted to the alcohol rehab facility. Since he remains weak and unsteady, admission to an inpatient rehab might need to be arranged first.
[2020-02-09] MEDS: chlordiazePOXIDE HCl 25 MG CAP PO PRN (14:19)
[2020-02-10 05:33] LABS: Anion Gap 10 mmol/L (10-20); BUN (Urea Nitrogen) 8 mg/dL (8.9-20.6); Calc. Creatinine Clearance 144 mL/min (70-130); Calcium 8.2 mg/dL (7.8-10.44); Carbon Dioxide 22 mmol/L (22-29); Chloride 111 mmol/L (98-107); Estimated GFR-MDRD Greater than 90; Glucose 98 mg/dL (70-105); Sodium 139 mmol/L (136-145)
[2020-02-10 05:57] LABS: Band 2 % (5-11); Hemoglobin 11.2 g/dL (14.0-18.0); Lymphocytes 35 % (21-51); MDiff Complete? YES; Mean Corpuscular HGB CONC 30.6 g/dL (32.0-36.0); Mean Corpuscular Hemoglobin 31.4 pg (27.0-31.0); Mean Platelet Volume 8.7 fL (7.4-10.4); Monocytes 11 % (0-10); Neutrophil 52 % (42-75); Platelet Count 348 thou/uL (130-400); Platelet Morphology Comment Appears Adequate; RBC Distribution Width 13.7 % (11.5-14.5); Red Blood Cell (RBC) Count 3.56 mill/uL (4.70-6.10); White Blood Cell (WBC) Count 7.1 thou/uL (4.8-10.8)
[2020-02-10] MEDS: chlordiazePOXIDE HCl 25 MG CAP PO PRN (08:20)
[2020-02-10] MEDS: Magnesium Oxide 400 MG TAB PO SCH (08:21)
[2020-02-10] MEDS: Famotidine 20 MG TAB PO SCH ×2 (08:21→19:46)
[2020-02-10] MEDS: Multivit, Therapeutic 1 TAB PO SCH (08:21)
[2020-02-10] MEDS: Multivitamin W/ Minerals 1 TAB PO SCH (08:21)
[2020-02-10] MEDS: Thiamine 100 MG TAB PO SCH (08:21)
[2020-02-10] MEDS: Folic Acid 1 MG TAB PO SCH (08:21)
[2020-02-10] MEDS: Potassium Chloride 20 MEQ TAB PO SCH ×2 (08:22→17:57)
[2020-02-10] MEDS: Polyethylene Glycol 3350 17 GM Packet PO SCH (08:22)
[2020-02-10] MEDS: Enoxaparin Sodium 40 MG/0.4 ML SYRINGE SC SCH (08:23)
--- NOTE | 2020-02-10 14:04 | PDOC.HOSPP ---
- Subjective Encounter Date: 02/10/20 Subjective: The patient seems to be less confused today. Some fine tremors are noted when he is asked to stretch his hands in front of him. However, his CIWA score remains less than 8. - Objective Vital Signs & Weight: Vital Signs (12 hours) Temp Pulse Resp BP BP Pulse Ox 02/10/20 12:00 98.2 F 98 18 132/94 H 132/94 H 98 02/10/20 08:00 98 02/10/20 07:28 98.1 F 116 H 18 135/95 H 98 02/10/20 07:25 135/95 H 02/10/20 04:00 136/94 H 02/10/20 03:52 99.0 F 108 H 16 136/94 H 97 Weight Admit Weight 168 lb 14.4 oz Weight 168 lb 14.4 oz Most Recent Monitor Data Heart Rate from ECG 104 NIBP 112/81 NIBP BP-Mean 91 Respiration from ECG 17 SpO2 100 I&O: 02/09/20 02/10/20 02/11/20 06:59 06:59 06:59 Intake Total 1190 1240 Output Total 1400 3125 Balance -210 -1885 Result Diagrams: 02/10/20 05:08 02/10/20 05:08 Hospitalist ROS - Medication Medications: Active Medications Generic Name Dose Route Start Last Admin Trade Name Freq PRN Reason Stop Dose Admin Hydrocodone Bitart/Acetaminophen 1 tab 02/01/20 22:04 02/09/20 08:55 [place] 5/325 PO 1 tab Q4H PRN Administration Moderate Pain (4-6) Chlordiazepoxide HCl 25 mg 02/08/20 08:20 02/10/20 08:20 Librium PO 25 mg TID PRN Administration ASE score >8 Diazepam 5 mg 02/03/20 04:00 02/04/20 15:39 Valium PO 5 mg Q4H PRN Administration FOR ASE 10 OR GREATER Enoxaparin Sodium 40 mg 02/02/20 09:00 02/10/20 08:23 Lovenox SC 40 mg 0900 EMELI Administration Famotidine 20 mg 02/02/20 09:00 02/10/20 08:21 Pepcid PO 20 mg BID EMELI Administration Folic Acid 1 mg 02/02/20 09:00 02/10/20 08:21 Folvite PO 1 mg DAILY EMELI Administration Iron/Minerals/Multivitamins 1 tab 02/02/20 09:00 02/10/20 08:21 Theragran M PO 1 tab DAILY EMELI Administration Magnesium Oxide 400 mg 02/03/20 09:00 02/10/20 08:21 Magnesium Oxide PO 400 mg DAILY EMELI Administration Multivitamins 1 tab 02/08/20 09:00 02/10/20 08:21 Theragran PO 1 tab DAILY EMELI Administration Ondansetron HCl 4 mg 02/01/20 22:04 02/02/20 11:24 Zofran IVP 4 mg Q6H PRN Administration Nausea/Vomiting, use 1st Polyethylene Glycol 17 gm 02/07/20 09:00 02/10/20 08:22 Miralax PO Not Given DAILY EMELI Potassium Chloride 40 meq 02/04/20 17:00 02/10/20 08:22 K-Dur PO 40 meq BID-WM EMELI Administration Quetiapine Fumarate 25 mg 02/09/20 21:00 02/09/20 20:02 Seroquel PO 25 mg HS EMELI Administration Sodium Chloride 10 ml 02/08/20 09:00 02/10/20 08:22 Flush - Normal Saline IVF 10 ml Q12HR EMELI Administration Thiamine HCl 100 mg 02/03/20 09:00 02/10/20 08:21 Thiamine PO 100 mg DAILY EMELI Administration - Exam General Appearance: NAD, awake alert ENT: normocephalic atraumatic Neck: supple, no JVD Heart: RRR, no murmur, no gallops, no rubs, normal peripheral pulses Respiratory: CTAB, no wheezes, no rales, no ronchi, normal chest expansion Gastrointestinal: soft, non-tender, non-distended, normal bowel sounds Extremities: no cyanosis, no clubbing Neurological: cranial nerve grossly intact Neurological - other findings: Generalized weakness Hosp A/P - Plan Hosp A/P (1) Alcohol abuse Code(s): F10.10 - ALCOHOL ABUSE, UNCOMPLICATED Status: Acute Plan: Detox program as inpt once stabilized (2) Alcohol withdrawal Code(s): F10.239 - ALCOHOL DEPENDENCE WITH WITHDRAWAL, UNSPECIFIED Status: Acute Plan: Continue Librium, MVI/Thiamine/Folate (3) Hypokalemia Code(s): E87.6 - HYPOKALEMIA Status: Acute (4) Alcoholic hepatitis Code(s): K70.10 - ALCOHOLIC HEPATITIS WITHOUT ASCITES Status: Chronic (5) Pancreatitis, alcoholic, acute Code(s): K85.20 - ALCOHOL INDUCED ACUTE PANCREATITIS WITHOUT NECROSIS OR INFCT Status: Acute Plan: - Plan The patient was admitted for alcohol withdrawal which is now improving. Continue Librium as needed for CIWA score of 8 or above. We are arranging to admit the patient to an alcohol rehab facility in [place], however, the patient would have to be able to ambulate to be accepted there. At the current time, the patient is having generalized weakness and poor balance. Case management is working on inpatient rehab placement. We have also noted that the patient has been experiencing recurrent auditory hallucinations and sometimes pretending to be a different person. This is likely due to underlying psychiatric illness as auditory hallucinations and delusions are signs of psychosis. Seroquel has been initiated yesterday. Otherwise, the patient is clinically stable. He is tolerating his diet and his electrolytes are within normal limits. COVID-19 has not been detected.
[2020-02-11 05:05] LABS: Band 2 % (5-11); Hemoglobin 11.1 g/dL (14.0-18.0); Hypochromia SLIGHT = 6-15 cells (100X) (0-5/hpf); Lymphocytes 35 % (21-51); MDiff Complete? YES; Macrocytosis SLIGHT = 6-15 cells (100X) (0-5/hpf); Mean Corpuscular HGB CONC 31.5 g/dL (32.0-36.0); Mean Corpuscular Hemoglobin 32.3 pg (27.0-31.0); Mean Platelet Volume 8.7 fL (7.4-10.4); Monocytes 10 % (0-10); Neutrophil 53 % (42-75); Platelet Count 329 thou/uL (130-400); Platelet Morphology Comment Appears Adequate; RBC Distribution Width 13.7 % (11.5-14.5); Red Blood Cell (RBC) Count 3.45 mill/uL (4.70-6.10); White Blood Cell (WBC) Count 5.4 thou/uL (4.8-10.8)
[2020-02-11 05:17] LABS: Anion Gap 10 mmol/L (10-20); BUN (Urea Nitrogen) 7 mg/dL (8.9-20.6); Calc. Creatinine Clearance 160 mL/min (70-130); Calcium 8.1 mg/dL (7.8-10.44); Carbon Dioxide 23 mmol/L (22-29); Chloride 110 mmol/L (98-107); Estimated GFR-MDRD Greater than 90; Glucose 88 mg/dL (70-105); Potassium 3.9 mmol/L (3.5-5.1); Sodium 139 mmol/L (136-145)
[2020-02-11 07:43] VITALS: BP 149/96; TEMP 98.6
[2020-02-11] MEDS: Potassium Chloride 20 MEQ TAB PO SCH (08:08)
[2020-02-11] MEDS: Enoxaparin Sodium 40 MG/0.4 ML SYRINGE SC SCH (08:09)
[2020-02-11] MEDS: Multivitamin W/ Minerals 1 TAB PO SCH (08:10)
[2020-02-11] MEDS: Folic Acid 1 MG TAB PO SCH (08:10)
[2020-02-11] MEDS: Thiamine 100 MG TAB PO SCH (08:10)
[2020-02-11] MEDS: Magnesium Oxide 400 MG TAB PO SCH (08:11)
[2020-02-11] MEDS: Polyethylene Glycol 3350 17 GM Packet PO SCH (08:11)
[2020-02-11] MEDS: Multivit, Therapeutic 1 TAB PO SCH (08:24)
[2020-02-11] MEDS: Famotidine 20 MG TAB PO SCH (08:46)
[2020-02-11] MEDS ORDERED: Thiamine 100 MG TAB PO SCH (09:00)
[2020-02-11] MEDS ORDERED: DULoxetine 60 MG CAP PO SCH (09:00)
[2020-02-11] MEDS ORDERED: Multivitamin W/ Minerals 1 TAB PO SCH (09:00)
--- NOTE | 2020-02-15 15:27 | EKG ---
Test Reason : Blood Pressure : / mmHG Vent. Rate : 132 BPM Atrial Rate : 132 BPM P-R Int : 126 ms QRS Dur : 074 ms QT Int : 384 ms P-R-T Axes : 067 024 075 degrees QTc Int : 568 ms Sinus tachycardia Possible Left atrial enlargement Abnormal ECG Confirmed by MIQUEL GONZALEZ, FERNANDO ([id number]), web editor STEPHANIE MEDEL ([id number]) on 02/15/2020 3:26:39 PM Referred By: Confirmed By:FERNANDO LAFLEUR MD
== END 2020-02-11 17:11 | DRG 896 ==
LOC: ERS 17:58 → IMCU/EMU 19:50 → ONC 02-04 17:10
PROVIDERS: ADMIT Internal Medicine; ATTEND Internal Medicine
PROC: HZ2ZZZZ Detoxification Services for Substance Abuse Treatment (ICD-10-PCS; principal; 2020-02-01)
DX: F10.239 Alcohol dependence with withdrawal, unspecified (principal); K85.20 Alcohol induced acute pancreatitis without necrosis or infection; E87.2 Acidosis; G93.40 Encephalopathy, unspecified; R44.0 Auditory hallucinations; Z20.828 Contact with and (suspected) exposure to other viral communicable diseases; K70.10 Alcoholic hepatitis without ascites; F10.229 Alcohol dependence with intoxication, unspecified; F32.9 Major depressive disorder, single episode, unspecified; F41.9 Anxiety disorder, unspecified; D72.829 Elevated white blood cell count, unspecified; R73.9 Hyperglycemia, unspecified; E87.6 Hypokalemia; Z98.84 Bariatric surgery status; Z79.899 Other long term (current) drug therapy
CPT/HCPCS: 36415; 51701; 70450; 71045; 80048; 80053; 80306; 80307; 81003; 81015; 82140; 82550; 83690; 83735; 84100; 84484; 85007; 85025; 85027; 87635; 90471; 90732; 93005; 96361; 96365; 96366; 96375; G0009; J1650; J2060; J2405; J3411; J3475; J3490; J7042; U0003